=== PATIENT | male | born 1935 | race Caucasian/White ===

== ENCOUNTER 2017-03-29 16:56 | Inpatient (IN) | payer MEDICARE, MEDICAID ==
[~2017-03-29] VITALS: Ht 180.3 cm; Wt 72.0 kg
[~2017-03-29 16:56] MED LIST: AVOD0.5C PO; ROSU5 PO
[2017-03-29 16:57] VITALS: BP 113/59; PULSE 104; RESP 24; TEMP 99.8; O2SAT 99
[2017-03-29] MEDS ORDERED: ROSU5 PO (17:20)
--- NOTE | 2017-03-29 17:36 | PD ---
HPI Chief Complaint: Altered mental status Time Seen by Provider: 17:10 Travel History International Travel<30 days: No Contact w/Intl Traveler<30days: No Traveled to known affect area: No History of Present Illness HPI 82yo M with PMH of HLD presents to the ED with multiple complaints. Pt's 1 week ago and pt has not been acting like himself. As per daughter, pt has shuffling gait, not eating much or getting out of bed. Pt is AAOx3 but has decreased strength in left leg on exam. Pt states for the last 2 days, he has been urinating on himself. Denies any fall, back pain or focal numbness. Had fever of 101F 2 days ago. Pt with intermittent lower abdominal pain for a few days. Denies any chest pain, sob, n/v. PFSH Past Medical History High Cholesterol: Yes Reproductive: Yes (ENLARGED PROSTATE) Tetanus Vaccination: Unknown Past Surgical History Appendectomy: Yes Social History Alcohol Use: No Tobacco Use: No Substance Use: No Allergies-Medications (Allergen,Severity, Reaction): Coded Allergies: No Known Allergies (Verified , 03/29/17) Reported Meds & Prescriptions Reported Meds & Active Scripts Active Reported Crestor (Rosuvastatin Calcium) 5 Mg Tab 5 Mg PO DAILY Avodart (Dutasteride) 0.5 Mg Cap 0.5 Mg PO DAILY Crestor (Rosuvastatin Calcium) 5 Mg Tab 5 Mg PO DAILY Review of Systems Except as stated in HPI: all other systems reviewed are Neg Physical Exam Narrative GENERAL: 82yo M tearful. SKIN: Focused skin assessment warm/dry. HEAD: Atraumatic. Normocephalic. EYES: Pupils equal and round. No scleral icterus. No injection or drainage. ENT: No nasal bleeding or discharge. Mucous membranes pink and moist. NECK: Trachea midline. No JVD. CARDIOVASCULAR: Regular rate and rhythm. No murmur appreciated. RESPIRATORY: No accessory muscle use. Clear to auscultation. Breath sounds equal bilaterally. GASTROINTESTINAL: Abdomen soft, +TTP suprapubic region. MUSCULOSKELETAL: No obvious deformities. No clubbing. No cyanosis. No edema. NEUROLOGICAL: AAOx3. CNII-XII grossly intact. LLE muscle strength 3/5. Sensation intact. PSYCHIATRIC: Tearful. Data Data Last Documented VS Vital Signs Date Time Temp Pulse Resp B/P (MAP) Pulse Ox O2 Delivery O2 Flow Rate FiO2 03/29/17 16:57 99.8 104 24 113/59 (77) 99 Room Air Orders Orders Ct Brain W/O Iv Contrast(Rout) (03/29/17 ) Urinalysis - C+S If Indicated (03/29/17 17:28) Complete Blood Count With Diff (03/29/17 17:28) Basic Metabolic Panel (Bmp) (03/29/17 17:28) Chest, Single Ap (03/29/17 ) Prothrombin Time / Inr (Pt) (03/29/17 17:28) Act Partial Throm Time (Ptt) (03/29/17 17:28) Ct Abd/Pel W Iv Contrast(Rout) (03/29/17 ) Labs Laboratory Tests Test 03/29/17 17:30 White Blood Count 6.3 TH/MM3 Red Blood Count 4.47 MIL/MM3 Hemoglobin 12.4 GM/DL Hematocrit 37.6 % Mean Corpuscular Volume 84.1 FL Mean Corpuscular Hemoglobin 27.8 PG Mean Corpuscular Hemoglobin Concent 33.1 % Red Cell Distribution Width 15.3 % Platelet Count 131 TH/MM3 Mean Platelet Volume 9.7 FL Neutrophils (%) (Auto) 77.2 % Lymphocytes (%) (Auto) 9.6 % Monocytes (%) (Auto) 8.9 % Eosinophils (%) (Auto) 3.6 % Basophils (%) (Auto) 0.7 % Neutrophils # (Auto) 4.9 TH/MM3 Lymphocytes # (Auto) 0.6 TH/MM3 Monocytes # (Auto) 0.6 TH/MM3 Eosinophils # (Auto) 0.2 TH/MM3 Basophils # (Auto) 0.0 TH/MM3 CBC Comment DIFF FINAL Differential Comment Prothrombin Time 13.9 SEC Prothromb Time International Ratio 1.2 RATIO Activated Partial Thromboplast Time 34.3 SEC Blood Urea Nitrogen 18 MG/DL Creatinine 0.97 MG/DL Random Glucose 103 MG/DL Calcium Level 7.6 MG/DL Sodium Level 138 MEQ/L Potassium Level 3.7 MEQ/L Chloride Level 104 MEQ/L Carbon Dioxide Level 25.4 MEQ/L Anion Gap 9 MEQ/L Estimat Glomerular Filtration Rate 74 ML/MIN MDM Medical Decision Making Medical Screen Exam Complete: Yes Emergency Medical Condition: Yes Interpretation(s) EKG: Differential Diagnosis CVA vs. UTI vs. colitis vs. grieve vs. Pneumonia Narrative Course 82yo M with multiple complaints. Pt's daughter is mainly concern about the change in gait and pt also has left lower extremity weakness on exam. Pt denies any fall, no back pain, no saddle paresthesia. Pt does have urinary incontinence and suprapubic abdominal pain. Impression is more cystitis but needs to rule out CVA as well. Labs reviewed, no leukocytosis. BMP unremarkable. CXR negative. Pt pending UA and CT brain, CT a/p. Sign out to next team to follow up and reevaluate. Nori Leblanc DO Mar 29, 2017 17:36
[2017-03-29 18:07] LABS: APTT (PATIENT) 34.3 SEC (24.3-30.1); INTERNATIONAL NORMALIZED RATIO 1.2 RATIO; PROTHROMBIN TIME - PATIENT 13.9 SEC (9.8-11.6)
[2017-03-29 18:09] LABS: AUTOMATED NEUTROPHIL # 4.9 TH/MM3 (1.8-7.7); BASOPHIL % 0.7 % (0.0-2.0); EOSINOPHIL # 0.2 TH/MM3 (0-0.4); EOSINOPHIL % 3.6 % (0.0-4.0); HEMATOCRIT 37.6 % (39.0-51.0); HEMO FLAGS DIFF FINAL; LYMPH % 9.6 % (9.0-44.0); LYMPHOCYTE # 0.6 TH/MM3 (1.0-4.8); MEAN CELL VOLUME 84.1 FL (80.0-100.0); MEAN CORPUSCULAR HEMOGLOBIN 27.8 PG (27.0-34.0); MEAN CORPUSCULAR HGB CONC 33.1 % (32.0-36.0); MONO % 8.9 % (0.0-8.0); NEUT % 77.2 % (16.0-70.0); PLATELET COUNT 131 TH/MM3 (150-450); RED BLOOD COUNT 4.47 MIL/MM3 (4.50-5.90); RED CELL DISTRIBUTION WIDTH 15.3 % (11.6-17.2); WHITE BLOOD COUNT 6.3 TH/MM3 (4.0-11.0)
--- NOTE | 2017-03-29 18:13 | RADRPT ---
EXAM DATE/TIME: 03/29/2017 17:51 [facility] COMPARISON: No previous studies available for comparison. INDICATIONS : Cough. MEDICAL HISTORY : None. SURGICAL HISTORY : None. ENCOUNTER: Initial ACUITY: 1 day PAIN SCORE: 0/10 LOCATION: Bilateral chest FINDINGS: A single view of the chest demonstrates the lungs to be symmetrically aerated without evidence of mas s, infiltrate or effusion. The cardiomediastinal contours are unremarkable. Osseous structures are intact. CONCLUSION: The lungs are clear. Kenroy Harmon MD on March 29, 2017 at 18:11 Board Certified Radiologist. This report was verified electronically.
[2017-03-29 18:26] LABS: BICARBONATE 25.4 MEQ/L (21.0-32.0); POTASSIUM 3.7 MEQ/L (3.5-5.1)
[2017-03-29] MEDS ORDERED: IOHEXOL 350 MG/ML 10 ML VIAL (for RAD DIAG) IVCONTRAST ONE (20:10)
--- NOTE | 2017-03-29 20:30 | RADRPT ---
EXAM DATE/TIME: 03/29/2017 19:58 [facility] COMPARISON: No previous studies available for comparison. INDICATIONS : Altered mental status. RADIATION DOSE: 49.37 CTDIvol (mGy) MEDICAL HISTORY : None SURGICAL HISTORY : None. ENCOUNTER: Initial ACUITY: 1 day PAIN SCALE: 0/10 LOCATION: cranial TECHNIQUE: Multiple contiguous axial images were obtained of the head. Using automated exposure control and adj ustment of the mA and/or kV according to patient size, radiation dose was kept as low as reasonably a chievable to obtain optimal diagnostic quality images. DICOM format image data is available electro nically for review and comparison. FINDINGS: CEREBRUM: The ventricles are normal for age. No evidence of midline shift, mass lesion, hemorrhage or acute in farction. No extra-axial fluid collections are seen. POSTERIOR FOSSA: The cerebellum and brainstem are intact. The 4th ventricle is midline. The cerebellopontine angle i s unremarkable. EXTRACRANIAL: The visualized portion of the orbits is intact. SKULL: The calvaria is intact. No evidence of skull fracture. CONCLUSION: 1. No acute findings. Chronic white matter ischemic changes. Wilber Riley MD on March 29, 2017 at 20:28 Board Certified Radiologist. This report was verified electronically.
--- NOTE | 2017-03-29 20:35 | RADRPT ---
EXAM DATE/TIME: 03/29/2017 20:03 [facility] COMPARISON: No previous studies available for comparison. INDICATIONS : Lower abdominal pain with diarrhea and dysuria. IV CONTRAST: 100 cc Omnipaque 350 (iohexol) IV ORAL CONTRAST: No oral contrast ingested. RADIATION DOSE: 5.93 CTDIvol (mGy) MEDICAL HISTORY : None SURGICAL HISTORY : Appendectomy. ENCOUNTER: Initial ACUITY: 3 days PAIN SCALE: 5/10 LOCATION: Bilateral lower quadrant TECHNIQUE: Volumetric scanning of the abdomen and pelvis was performed. Using automated exposure control and ad justment of the mA and/or kV according to patient size, radiation dose was kept as low as reasonably achievable to obtain optimal diagnostic quality images. DICOM format image data is available electro nically for review and comparison. FINDINGS: Atelectasis noted in the lungs at the bases. Mild fatty liver. Spleen enlarged at 16.7 cm. Calcified gallstones in the gallbladder without ductal dilatation. Adrenals, left kidney and pancreas unremarkable. Lower pole left renal cyst measuring 4.9 cm of the l ower pole. No pelvic masses or free fluid. No acute bony abnormalities. CONCLUSION: 1. No acute findings within the abdomen and pelvis. Specifically no obstructive uropathy or bowel obs truction. 2. Multiple calcified gallstones. 3. Splenomegaly. Wilber Riley MD on March 29, 2017 at 20:31 Board Certified Radiologist. This report was verified electronically.
[2017-03-29 20:50] VITALS: BP 121/58; PULSE 108; RESP 16; O2SAT 94
[2017-03-29 20:54] LABS: BLOOD, URINE NEG (NEG); COMMENT (UR) CULT NOT INDICATED; CULTURE IF INDICATED CULT NOT INDICATED; GLUCOSE,URINE NEG (NEG); KETONE, URINE NEG (NEG); MUCUS URINE FEW /lpf (OCC); NITRITE,URINE NEG (NEG); SQUAMOUS EPITHELIAL CELL URINE 1 /hpf (0-5); URINE COLOR YELLOW (YELLW/STRAW)
[2017-03-29 21:02] LABS: INDIRECT BILIRUBIN 0.6 MG/DL (0.0-0.8); TOTAL BILIRUBIN ADULT 0.9 MG/DL (0.2-1.0)
[2017-03-29] MEDS ORDERED: SODIUM CHLOR 0.9% 1000 ML INJ 1,000 ML IV ONE (21:15)
--- NOTE | 2017-03-29 21:26 | PD ---
Data Data Last Documented VS Vital Signs Date Time Temp Pulse Resp B/P (MAP) Pulse Ox O2 Delivery O2 Flow Rate FiO2 03/29/17 20:50 108 16 121/58 (79) 94 Room Air 03/29/17 16:[address] Brain W/O Iv Contrast(Rout) (03/29/17 ) Urinalysis - C+S If Indicated (03/29/17 17:28) Complete Blood Count With Diff (03/29/17 17:28) Basic Metabolic Panel (Bmp) (03/29/17 17:28) Chest, Single Ap (03/29/17 ) Prothrombin Time / Inr (Pt) (03/29/17 17:28) Act Partial Throm Time (Ptt) (03/29/17 17:28) Ct Abd/Pel W Iv Contrast(Rout) (03/29/17 ) Iohexol 350 Inj (Omnipaque 350 Inj) (03/29/17 20:10) Hepatic Functional Panel (03/29/17 20:44) Creatine Kinase (Cpk) (03/29/17 17:30) Sodium Chlor 0.9% 1000 Ml Inj (Ns 1000 M (03/29/17 21:15) Blood Culture (03/29/17 21:15) Stool Ova And Parasite Screen (03/29/17 21:18) C Diff Toxin Pcr (03/29/17 21:18) Mri Brain W&W/O Contrast (03/29/17 ) Mra Brain W/O Contrast (Cow) (03/29/17 ) Mri L Spine W&W/O Contrast (03/29/17 ) Acetaminophen (Tylenol) (03/29/17 21:30) Monoscreen (03/29/17 21:24) Influenzae A/B Antigen (03/29/17 21:33) Admit Order (Ed Use Only) (03/29/17 21:34) Labs Laboratory Tests Test 03/29/17 17:30 03/29/17 20:44 White Blood Count 6.3 TH/MM3 Red Blood Count 4.47 MIL/MM3 Hemoglobin 12.4 GM/DL Hematocrit 37.6 % Mean Corpuscular Volume 84.1 FL Mean Corpuscular Hemoglobin 27.8 PG Mean Corpuscular Hemoglobin Concent 33.1 % Red Cell Distribution Width 15.3 % Platelet Count 131 TH/MM3 Mean Platelet Volume 9.7 FL Neutrophils (%) (Auto) 77.2 % Lymphocytes (%) (Auto) 9.6 % Monocytes (%) (Auto) 8.9 % Eosinophils (%) (Auto) 3.6 % Basophils (%) (Auto) 0.7 % Neutrophils # (Auto) 4.9 TH/MM3 Lymphocytes # (Auto) 0.6 TH/MM3 Monocytes # (Auto) 0.6 TH/MM3 Eosinophils # (Auto) 0.2 TH/MM3 Basophils # (Auto) 0.0 TH/MM3 CBC Comment DIFF FINAL Differential Comment Prothrombin Time 13.9 SEC Prothromb Time International Ratio 1.2 RATIO Activated Partial Thromboplast Time 34.3 SEC Blood Urea Nitrogen 18 MG/DL Creatinine 0.97 MG/DL Random Glucose 103 MG/DL Calcium Level 7.6 MG/DL Sodium Level 138 MEQ/L Potassium Level 3.7 MEQ/L Chloride Level 104 MEQ/L Carbon Dioxide Level 25.4 MEQ/L Anion Gap 9 MEQ/L Estimat Glomerular Filtration Rate 74 ML/MIN Total Bilirubin 0.9 MG/DL Direct Bilirubin 0.3 MG/DL Indirect Bilirubin 0.6 MG/DL Aspartate Amino Transf (AST/SGOT) 18 U/L Alanine Aminotransferase (ALT/SGPT) 32 U/L Alkaline Phosphatase 87 U/L Total Creatine Kinase 20 U/L Total Protein 6.1 GM/DL Albumin 2.7 GM/DL Urine Color YELLOW Urine Turbidity HAZY Urine pH 6.0 Urine Specific [place] GREATER THAN 1.050 Urine Protein 30 mg/dL Urine Glucose (UA) NEG mg/dL Urine Ketones NEG mg/dL Urine Occult Blood NEG Urine Nitrite NEG Urine Bilirubin NEG Urine Urobilinogen 2.0 MG/DL Urine Leukocyte Esterase NEG Urine RBC 2 /hpf Urine WBC 4 /hpf Urine Squamous Epithelial Cells 1 /hpf Urine Mucus FEW /lpf Microscopic Urinalysis Comment CULT NOT INDICATED MDM Supervised Visit with CHETAN: No Narrative Course The patient was initially evaluated by the previous provider and sent out to me at the beginning of my shift pending labs, CT head, CT abdomen pelvis, UA, and disposition. See her note for further details. Briefly this is an 82-year-old male who is here with his daughter and granddaughter for evaluation of fever, generalized malaise, decreased energy, shuffling gait, and left lower extremity weakness. The patient's a couple of weeks ago, and the patient has had these symptoms that have been progressively worsening over the last week. According to the patient's daughter , the patient was mowing his own monitor until 2 weeks ago and was very independent. He has become more dependent on his family members because he feels too weak to get up. The patient also does not feel like getting out of bed. He has had 2 episodes of urinary incontinence. He was complaining of some abdominal discomfort. On exam the patient is awake and alert, GCS 15, no apparent distress. No nuchal rigidity. No abdominal tenderness. He does have slight left leg weakness when compared to the right. He is complaining of some lower back pain, however states it has been chronic. He has also been having loose bowel movements. Vital signs show heart rate 104, blood pressure 113/59, pulse ox 99% on room air , oral temp of 99.8F. CBC shows WBC 6.3, hemoglobin 12.4, hematocrit 37.6, platelets 131, neutrophils 77%. CMP is unremarkable. CK is 20. UA is not suggestive of UTI. Chest x-ray: The lungs are clear. CT head: No acute findings. Chronic white matter ischemic changes. CT abdomen pelvis: No acute findings. Multiple calcified gallstones. Splenomegaly The patient and the patient's family were made aware of all findings. He has an unsteady gait which is unusual for him complaining of weakness in his left leg. He does have some mild midline lumbar spine tenderness. MRI brain was ordered to rule out CVA. MRI of the lumbar spine was also ordered to look for possible discitis/epidural abscess that could be the culprit for his lower back pain, left leg weakness, urinary incontinence, and fever. Patient has splenomegaly on CT scan, so [facility] screen and influenza were ordered given his fever. The patient will be admitted for further treatment and evaluation of unsteady gait, febrile illness. Case discussed with [facility] hospitalist LAURA Hager. The patient will be admitted to their service under Dr. Vyas. They will follow-up with MRI imaging and all added labs. Diagnosis Primary Impression: Unsteady gait Additional Impression: Fever of unknown origin Admitting Information Admitting Physician Requests: Sang Parada MD Mar 29, 2017 21:26
[2017-03-29] MEDS ORDERED: ACETAMINOPHEN 325 MG TAB PO ONE (21:30)
[2017-03-29] MEDS ORDERED: GADODIAMIDE PF 287 MG/ML 5 ML VIAL (for RAD MRI) IV PUSH ONE (21:36)
[2017-03-29] MEDS ORDERED: SODIUM CHLORIDE 0.9% FLUSH 10 ML FLUSH IV FLUSH PRN (22:45)
[2017-03-29] MEDS ORDERED: BISACODYL 10 MG SUPP RECTAL PRN (22:45)
[2017-03-29] MEDS ORDERED: ACETAMINOPHEN 325 MG TAB PO PRN (22:45)
[2017-03-29] MEDS ORDERED: SENNOSIDES 8.6 MG TAB PO PRN (22:45)
[2017-03-29] MEDS ORDERED: NALOXONE HCL 0.4 MG/ML AMP IV PRN (22:45)
[2017-03-29] MEDS ORDERED: LACTULOSE SYRUP 20 GM/30 ML CUP PO PRN (22:45)
[2017-03-29] MEDS ORDERED: MAGNESIUM HYDROXIDE SUSP 30 ML CUP PO PRN (22:45)
[2017-03-29] MEDS ORDERED: ONDANSETRON HCL 4 MG/2 ML VIAL IVP PRN (22:45)
[2017-03-29] MEDS ORDERED: LORazepam 2 MG/ML VIAL ONE (23:11)
[2017-03-29] MEDS ORDERED: LORazepam 2 MG/ML VIAL IV PUSH ONE (23:15)
[2017-03-30] VITALS (14 sets, daily range): BP systolic 92–145; BP diastolic 51–67; PULSE 92–123; RESP 17–22; TEMP 97.8–102.1; O2SAT 93–97
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
[2017-03-30] MEDS: ASPIRIN EC 81 MG TABEC PO SCH ×2 (01:06→08:54)
[2017-03-30] MEDS: HEPARIN SODIUM - SQ 10,000 UNITS/ML VIAL SQ SCH ×3 (01:06→23:39)
[2017-03-30] MEDS: SODIUM CHLOR 0.9% 1000 ML INJ 1,000 ML IV SCH ×3 (01:07→20:53)
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
--- NOTE | 2017-03-30 07:43 | MH ---
cc: MADAN VYAS DATE OF ADMISSION: 03/29/2017 @ 22:30 PRIMARY CARE PHYSICIAN Bishop Carr MD CHIEF COMPLAINT Weakness, low-grade fever. HISTORY OF PRESENT ILLNESS This is a pleasant 82-year-old male whose a month ago. His appetite has been poor. Over the past week, though, he has really just lost all of his energy. He is staying with his daughter who has developed an upper respiratory infection. He may have developed a little bit of an upper respiratory infection as well. He has had some fever, chills. He has become shaky. He has had some decreased urine control at night. He has also had some yellowish small stools for awhile. His low back is hurting but this is not a new problem; it has been intermittent. His legs feel weak and occasionally painful, the left being weaker than the right. Over the last two days, he has also had some urinary accidents as well. His temperature has been up to 101. He went to see his family doctor today and was sent to the emergency room. He has had some lower abdominal pain as well for a few days. He has not had any chest pain, shortness of breath, nausea, vomiting. No blood in the stool. He has had no trauma to the back, no falls and no change in medication recently. MEDICATIONS ON ADMISSION Please see the chart. ALLERGIES None. PAST MEDICAL HISTORY 1. BPH. 2. Hyperlipidemia. 3. Hypertension. 4. Low B-12. PAST SURGICAL HISTORY Appendectomy. SOCIAL HISTORY He has been a for about a month. Never smoked or drank. FAMILY HISTORY Non-contributory. REVIEW OF SYSTEMS The patient has lost roughly 20 pounds over the past month since his has . He has had long-time shuffling of his gait where he seems to drag his left foot. He states that he may have hurt his back from lifting long in the past but he was able to stay active with cutting grass and doing basic things around the house until recently with his dying. His sleep has also not been the same since his has , is more broken than it had been. He feels that he may be depressed. PHYSICAL EXAMINATION VITAL SIGNS: T-max here has been 99.8, pulse is 108, respirations 16, blood pressure 120/58. O2 sat is 94% on room air. GENERAL: This is an 82-year-old male resting comfortably in bed. He does appear to be uncomfortable when he tries to move. His daughter is at the bedside. He is in no respiratory distress. HEENT: Mucous membranes are moist. There is no jaundice. NECK: Supple. CARDIOVASCULAR SYSTEM: Tachycardic. RESPIRATORY SYSTEM: Lungs are clear. GASTROINTESTINAL SYSTEM: Bowel sounds are present. Mild discomfort with palpation over the lower abdomen. SYSTEM: No CVA tenderness. MUSCULOSKELETAL SYSTEM: No edema. Trudy's is negative. Distal pulses are palpable. NEUROLOGICAL EXAMINATION: The patient is awake, alert, oriented x 3. His speech is clear and fluent. There is no obvious facial asymmetry. EOMs are intact. There is a very mild tremor in both his upper extremities. Lower extremity straight leg raising is normal on the right, on the left is 3/5. Dorsi and plantar flexion is 5/5 on the right, 4/5 on the left. Gait and station is not tested. INVESTIGATIONS White count 6.3, hemoglobin 12.4, platelets are 131. INR is 1.2. PT is 13.9. PTT is 34.3. Sodium 138, potassium 3.7, BUN 18, creatinine 0.97, glucose 103, calcium 7.6. Direct bilirubin is 0.3, total is 0.9. LFTs otherwise normal. CPK is 10, total protein is 6.1, albumin is 2.7. IMAGING STUDIES CT of the abdomen and pelvis - no acute findings. No obstructive uropathy or bowel obstruction. Multiple calcified gallstones, splenomegaly. Chest x-ray - Lungs are clear. Head CT - No acute findings. Chronic white matter changes. IMPRESSION 1. Unsteady gait. 2. Fevers. 3. Thrombocytopenia. 4. Protein calorie malnutrition. 5. Mild anemia. 6. Hypertension. 7. Hyperlipidemia. 8. Splenomegaly. 9. Gallstones. DISCUSSION The patient is placed on observation status to Dr. Vyas's service. PLAN 1. The plan will be to run an MRI/MRA of the head which has been ordered through the emergency room as well as an MRI of the lumbar spine because of the lower extremity weakness. 2. We will start the patient on baby aspirin as well as DVT prophylaxis. 3. Further labs including blood cultures have been ordered, C-diff and flu are ordered. We will add a procalcitonin, inflammatory markers. 4. He will be placed on fluids. 5. We will monitor him on telemetry because of the tachycardia. 6. We will monitor his labs and we will make further recommendations based on the above findings. 7. DVT prophylaxis and GI prophylaxis will be given. ANTICIPATED LENGTH OF STAY Two days. ANTICIPATED DISCHARGE Home. Dictated by: Milton Hager PA-C Madan Vyas MD JP/SSB /10:59 PM /7:05 AM pt evaluation done chart reviewed agree with above plan of care MTDD
[2017-03-30] MEDS: FAMOTIDINE 20 MG TAB PO SCH ×2 (08:54→20:59)
[2017-03-30] MEDS: SODIUM CHLORIDE 0.9% FLUSH 10 ML FLUSH IV FLUSH SCH ×2 (08:54→21:00)
--- NOTE | 2017-03-30 08:56 | HHI.PR ---
Subjective Subjective Remarks awake, oriented x 3 wants to eat states he has not been as hungry dry cough, no sputum no cp no sob slept okay Review of Systems Constitutional Constitutional Remarks 12 point review of systems completed, negative except as noted above Vitals/Results Vital Signs Vital Signs Date Time Temp Pulse Resp B/P (MAP) Pulse Ox O2 Delivery O2 Flow Rate FiO2 03/30/17 08:27 97.8 98 18 94/51 (65) 96 03/30/17 04:17 98.7 123 19 112/54 (73) 96 03/30/17 02:13 93 03/30/17 01:01 98.5 92 17 92/55 (67) 95 03/29/17 23:35 03/29/17 20:50 108 16 121/58 (79) 94 Room Air 03/29/17 16:57 99.8 104 24 113/59 (77) 99 Room Air CBC/BMP: 03/29/17 1730 03/29/17 1730 Lab Results Laboratory Tests Test 03/29/17 17:30 03/29/17 20:44 03/30/17 01:00 03/30/17 07:35 White Blood Count 6.3 TH/MM3 Red Blood Count 4.47 MIL/MM3 Hemoglobin 12.4 GM/DL Hematocrit 37.6 % Mean Corpuscular Volume 84.1 FL Mean Corpuscular Hemoglobin 27.8 PG Mean Corpuscular Hemoglobin Concent 33.1 % Red Cell Distribution Width 15.3 % Platelet Count 131 TH/MM3 Mean Platelet Volume 9.7 FL Neutrophils (%) (Auto) 77.2 % Lymphocytes (%) (Auto) 9.6 % Monocytes (%) (Auto) 8.9 % Eosinophils (%) (Auto) 3.6 % Basophils (%) (Auto) 0.7 % Neutrophils # (Auto) 4.9 TH/MM3 Lymphocytes # (Auto) 0.6 TH/MM3 Monocytes # (Auto) 0.6 TH/MM3 Eosinophils # (Auto) 0.2 TH/MM3 Basophils # (Auto) 0.0 TH/MM3 CBC Comment DIFF FINAL Differential Comment Erythrocyte Sedimentation Rate 11 mm/hr Prothrombin Time 13.9 SEC Prothromb Time International Ratio 1.2 RATIO Activated Partial Thromboplast Time 34.3 SEC Blood Urea Nitrogen 18 MG/DL Creatinine 0.97 MG/DL Random Glucose 103 MG/DL Calcium Level 7.6 MG/DL Sodium Level 138 MEQ/L Potassium Level 3.7 MEQ/L Chloride Level 104 MEQ/L Carbon Dioxide Level 25.4 MEQ/L Anion Gap 9 MEQ/L Estimat Glomerular Filtration Rate 74 ML/MIN Total Bilirubin 0.9 MG/DL Direct Bilirubin 0.3 MG/DL Indirect Bilirubin 0.6 MG/DL Aspartate Amino Transf (AST/SGOT) 18 U/L Alanine Aminotransferase (ALT/SGPT) 32 U/L Alkaline Phosphatase 87 U/L Total Creatine Kinase 20 U/L C-Reactive Protein 4.86 MG/DL Total Protein 6.1 GM/DL Albumin 2.7 GM/DL Urine Color YELLOW Urine Turbidity HAZY Urine pH 6.0 Urine Specific [place] GREATER THAN 1.050 Urine Protein 30 mg/dL Urine Glucose (UA) NEG mg/dL Urine Ketones NEG mg/dL Urine Occult Blood NEG Urine Nitrite NEG Urine Bilirubin NEG Urine Urobilinogen 2.0 MG/DL Urine Leukocyte Esterase NEG Urine RBC 2 /hpf Urine WBC 4 /hpf Urine Squamous Epithelial Cells 1 /hpf Urine Mucus FEW /lpf Microscopic Urinalysis Comment CULT NOT INDICATED Procalcitonin 0.35 ng/mL Microbiology Microbiology 03/29/17 Aerobic Blood Culture, Received Pending 03/29/17 Anaerobic Blood Culture, Received Pending 03/29/17 Aerobic Blood Culture, Received Pending 03/29/17 Anaerobic Blood Culture, Received Pending Physical Exam General General Appearance: Well Developed, Well Nourished, No Acute Distress, Comfortable Eyes Eye Exam: Pupils Equal, Pupils Reactive Ears & Nose Ears & Nose Exam: Nasal Mucosa [place] Throat Throat Exam: Oral Mucosa [place] & Moist Neck Neck Exam: Neck Supple, Trachea Midline Pulmonary Resp Exam: Clear Bilaterally, No Distress Cardiology CV Exam: Regular, Good Perfusion Gastrointestinal/Abdomen GI Exam: Soft, Non-Tender, Bowel Sounds Present, Non-Distended Musculoskeletal MS Exam: Joints Intact Integumentary Skin Exam: Warm, Dry Extremeties Extremities Exam: No Edema, Pedal Pulses Palpable Neurologic Neuro Exam: Alert, Awake, Oriented, Speech Clear, Moving All Extremities, No Focal Deficits Psychiatric Psych Exam: Appropriate Responses VTE Prophylaxis VTE Prophylaxis Meds: Heparin PUD Prophylasis PUD Remarks PEPCID Assessment/Plan Problem List: (1) Fever of unknown origin ICD Codes: R50.9 - Fever, unspecified Status: Acute (2) Unsteady gait ICD Codes: R26.81 - Unsteadiness on feet Status: Acute (3) Thrombocytopenia ICD Codes: D69.6 - Thrombocytopenia, unspecified Status: Acute (4) Protein calorie malnutrition ICD Codes: E46 - Unspecified protein-calorie malnutrition Status: Acute (5) Anemia ICD Codes: D64.9 - Anemia, unspecified Status: Chronic (6) HTN (hypertension) ICD Codes: I10 - Essential (primary) hypertension Status: Chronic (7) Splenomegaly ICD Codes: R16.1 - Splenomegaly, not elsewhere classified Status: Acute (8) Elevated C-reactive protein ICD Codes: R79.82 - Elevated C-reactive protein (CRP) Status: Acute Assessment/Plan 81-year-old elderly male admitted with weakness, not eating, left lower extremity weakness, fever at home. Left lower extremity weakness, fever, elevated CRP. No source of infection noted. Possibly viral -Imaging studies reviewed, no acute findings noted. -We'll not start antibiotics at this time, monitor WBC, monitor for fever. -Reported diarrhea, stool for C. difficile pending Weakness -Physical therapy for evaluation and treatment -No acute findings to spine MRI. Tachycardia, possibly secondary to dehydration -Continue with IV fluid History hypertension, blood pressure actually trending low -Continue with IV fluid Splenomegaly Thrombocytopenia -Monitor CBC Heparin for DVT prophylaxis Pepcid for GI prophylaxis Consult physical therapy for evaluation Continue with above treatment, we'll continue to monitor her closely Plan to discharge tomorrow if stable Discussed with RN Discussed with Dr. Vyas Discussed with patient This patient was seen by myself and Dr. Vyas, this note is written on his behalf Problem Qualifiers (1) Protein calorie malnutrition: Qualified Codes: E44.0 - Moderate protein-calorie malnutrition (2) Anemia: Qualified Codes: D64.9 - Anemia, unspecified (3) HTN (hypertension): Qualified Codes: I10 - Essential (primary) hypertension Nataly Andrew Mar 30, 2017 08:55
[2017-03-30] MEDS: ACETAMINOPHEN 325 MG TAB PO PRN (21:00)
[2017-03-31] VITALS (12 sets, daily range): BP systolic 95–119; BP diastolic 53–60; PULSE 92–109; RESP 16–18; TEMP 99.1–102.1; O2SAT 93–97
[2017-03-31 00:09] LABS: BACTERIA, URINE RARE /hpf; BLOOD, URINE NEG (NEG); GLUCOSE,URINE NEG (NEG); GRANULAR CAST, URINE 3 /lpf; HYALINE CAST, URINE 1 /lpf (RARE); KETONE, URINE NEG (NEG); MUCUS URINE FEW /lpf (OCC); NITRITE,URINE NEG (NEG); PH, URINE 5.5 (5.0-8.5); SQUAMOUS EPITHELIAL CELL URINE 1 /hpf (0-5); URINE COLOR YELLOW (YELLW/STRAW)
[2017-03-31 00:10] LABS: COMMENT (UR) CATH-CULTURE IND; CULTURE IF INDICATED CATH CULTURE IND
[2017-03-31] MEDS: ACETAMINOPHEN 325 MG TAB PO PRN ×3 (01:14→18:22)
[2017-03-31] MEDS: SODIUM CHLOR 0.9% 1000 ML INJ 1,000 ML IV SCH (06:33)
--- NOTE | 2017-03-31 07:53 | HHI.FF ---
Face to Face Verification Diagnosis: (1) Fever of unknown origin (2) Unsteady gait (3) Anemia (4) Splenomegaly (5) Thrombocytopenia (6) Protein calorie malnutrition (7) HTN (hypertension) (8) Elevated C-reactive protein Physical Therapy Order: Evaluate and Treat Home Health Nursing Order: Medical education Nursing assessment with vital signs B[facility] Header Order: To Evaluate: Support services I have seen patient Tremaine Garcia on 03/31/17. My clinical findings support the need for the requested home health care services because: Deconditioned w/ increased weakness Need for psychosocial assistance Impaired cognition/judgement I certify that my clinical findings support that this patient is homebound because: Impaired cognitive ability/safety Unsafe to leave home unassisted Need for psychosocial assistance Nataly Andrew [facility] Mar 31, 2017 07:53
--- NOTE | 2017-03-31 08:52 | HHI.PR ---
Subjective Subjective Remarks awake, oriented x 3 Complaining of chills Febrile last night, max 102.1 No cough, no sputum No urinary symptoms Noted with murmur, indicates that he has never seen a radiology transcriptionist Not sure when the last echocardiogram was done Denies any chest pain, no shortness of breath Indicates he has been drinking more water and appetite is improving Review of Systems Constitutional Constitutional Remarks 12 point review of systems completed, negative except as noted above Vitals/Results Vital Signs Vital Signs Date Time Temp Pulse Resp B/P (MAP) Pulse Ox O2 Delivery O2 Flow Rate FiO2 03/31/17 04:15 99.4 103 18 99/58 (72) 93 03/31/17 03:56 105 03/31/17 03:20 102.1 03/31/17 01:15 100.0 03/30/17 23:55 99 03/30/17 23:51 99.0 100 18 99/56 (70) 96 03/30/17 22:51 105 03/30/17 21:33 99.0 118 18 112/55 (74) 94 03/30/17 19:35 102.1 110 18 115/58 (77) 96 03/30/17 17:17 98.1 111 22 112/62 (79) 93 03/30/17 16:05 116 03/30/17 12:25 102 03/30/17 11:16 99.2 97 18 99/54 (69) 97 CBC/BMP: 03/29/17 1730 03/29/17 1730 Lab Results Laboratory Tests Test 03/30/17 23:54 Urine Color YELLOW Urine Turbidity HAZY Urine pH 5.5 Urine Specific [place] 1.028 Urine Protein 30 mg/dL Urine Glucose (UA) NEG mg/dL Urine Ketones NEG mg/dL Urine Occult Blood NEG Urine Nitrite NEG Urine Bilirubin NEG Urine Urobilinogen 4.0 MG/DL Urine Leukocyte Esterase TRACE Urine RBC 2 /hpf Urine WBC 4 /hpf Urine Squamous Epithelial Cells 1 /hpf Urine Amorphous Sediment RARE Urine Bacteria RARE /hpf Urine Hyaline Casts 1 /lpf Urine Granular Casts 3 /lpf Urine Mucus FEW /lpf Microscopic Urinalysis Comment CATH-CULTURE IND Microbiology Microbiology 03/31/17 Aerobic Blood Culture, Received Pending 03/31/17 Anaerobic Blood Culture, Received Pending 03/31/17 Aerobic Blood Culture, Received Pending 03/31/17 Anaerobic Blood Culture, Received Pending 03/31/17 Influenza Types A,B Antigen (PATTI) - Final, Complete NEGATIVE FOR FLU A AND B ANTIGEN.... 03/30/17 Urine Culture, Received Pending Physical Exam General General Appearance: Well Developed, Well Nourished, No Acute Distress, Comfortable Eyes Eye Exam: Pupils Equal, Pupils Reactive Ears & Nose Ears & Nose Exam: Nasal Mucosa [place] Throat Throat Exam: Oral Mucosa [place] & Moist Neck Neck Exam: Neck Supple, Trachea Midline Pulmonary Resp Exam: Clear Bilaterally, No Distress Cardiology CV Exam: Regular, Good Perfusion, Murmur Gastrointestinal/Abdomen GI Exam: Soft, Non-Tender, Bowel Sounds Present, Non-Distended Musculoskeletal MS Exam: Joints Intact Integumentary Skin Exam: Warm, Dry Extremeties Extremities Exam: No Edema, Pedal Pulses Palpable Neurologic Neuro Exam: Alert, Awake, Oriented, Speech Clear, Moving All Extremities, No Focal Deficits Psychiatric Psych Exam: Appropriate Responses VTE Prophylaxis VTE Prophylaxis Meds: Heparin PUD Prophylasis PUD Remarks PEPCID Assessment/Plan Problem List: (1) Fever of unknown origin ICD Codes: R50.9 - Fever, unspecified Status: Acute (2) Unsteady gait ICD Codes: R26.81 - Unsteadiness on feet Status: Acute (3) Thrombocytopenia ICD Codes: D69.6 - Thrombocytopenia, unspecified Status: Acute (4) Protein calorie malnutrition ICD Codes: E46 - Unspecified protein-calorie malnutrition Status: Acute (5) Anemia ICD Codes: D64.9 - Anemia, unspecified Status: Chronic (6) HTN (hypertension) ICD Codes: I10 - Essential (primary) hypertension Status: Chronic (7) Splenomegaly ICD Codes: R16.1 - Splenomegaly, not elsewhere classified Status: Acute (8) Elevated C-reactive protein ICD Codes: R79.82 - Elevated C-reactive protein (CRP) Status: Acute (9) UTI (urinary tract infection) ICD Codes: N39.0 - Urinary tract infection, site not specified Status: Acute (10) Murmur ICD Codes: R01.1 - Cardiac murmur, unspecified Status: Chronic Assessment/Plan 81-year-old elderly male admitted with weakness, not eating, left lower extremity weakness, fever at home. Left lower extremity weakness, fever, elevated CRP. No source of infection noted. Possibly viral -Imaging studies reviewed, no acute findings noted. -Reported diarrhea, stool for C. difficile pending -Febrile last night, complaining of chills. UA completed, probable UTI. -Blood cultures 2 done -Start Rocephin 1 g IV daily, follow cultures Weakness -Physical therapy for evaluation and treatment -No acute findings to spine MRI. Tachycardia, possibly secondary to dehydration -Continue with IV fluid, dec. 50/hr History hypertension, blood pressure actually trending low -Continue with IV fluid Splenomegaly Thrombocytopenia -Monitor CBC Murmur, indicates he has history. Does not recall last echocardiogram. Does not follow-up with a radiology transcriptionist regularly -Obtain 2-D echo -Decrease IV fluids, monitor for symptoms of fluid overload Heparin for DVT prophylaxis Pepcid for GI prophylaxis Consult physical therapy for evaluation Labs pending this morning Will change patient to inpatient status, failed observation status. Remains febrile, cultures have been completed. Requires further investigation into source of infection, continue with IV antibiotics and IV fluids. Patient is at risk for complications that can potentially lead to sepsis, septic shock, possibly . Anticipated discharge back to home with home health care when stable. Discussed with RN Discussed with Dr. Vyas Discussed with patient This patient was seen by myself and Dr. Vyas, this note is written on his behalf Problem Qualifiers (1) Protein calorie malnutrition: Qualified Codes: E44.0 - Moderate protein-calorie malnutrition (2) Anemia: Qualified Codes: D64.9 - Anemia, unspecified (3) HTN (hypertension): Qualified Codes: I10 - Essential (primary) hypertension (4) UTI (urinary tract infection): Qualified Codes: N39.0 - Urinary tract infection, site not specified Nataly Andrew Mar 31, 2017 08:52
[2017-03-31] MEDS ORDERED: cefTRIAXone INJ 1,000 MG in SODIUM CHLORIDE 0.9% INJ 100 ML IV SCH (09:00)
[2017-03-31] MEDS ORDERED: VANCOMYCIN INJ 1,000 MG in SODIUM CHLOR 0.9% 250 ML INJ 250 ML IV SCH (09:15)
[2017-03-31] MEDS: ASPIRIN EC 81 MG TABEC PO SCH (09:46)
[2017-03-31] MEDS: PIPERACIL-TAZO 3.375 GM PREMIX 50 ML IV SCH ×3 (09:46→22:05)
[2017-03-31] MEDS: FAMOTIDINE 20 MG TAB PO SCH ×2 (09:46→22:06)
[2017-03-31] MEDS: SODIUM CHLORIDE 0.9% FLUSH 10 ML FLUSH IV FLUSH SCH ×2 (09:47→21:00)
[2017-03-31] MEDS ORDERED: PNEUMOCOCCAL POLYVALENT INJ 25 MCG/0.5 ML SYR IM ONE (10:00)
[2017-03-31] MEDS ORDERED: INFLUENZA VIRUS VACCINE (QUADRIVALENT) 0.5 ML SYR IM ONE (10:00)
[2017-03-31] MEDS: HEPARIN SODIUM - SQ 10,000 UNITS/ML VIAL SQ SCH ×2 (10:25→22:05)
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
[2017-03-31] MEDS ORDERED: SODIUM CHLOR 0.9% 250 ML INJ 250 ML IV ONE (15:45)
[2017-03-31 18:40] LABS: HEMATOCRIT 33.3 % (39.0-51.0); MEAN CELL VOLUME 82.7 FL (80.0-100.0); MEAN CORPUSCULAR HEMOGLOBIN 28.2 PG (27.0-34.0); MEAN CORPUSCULAR HGB CONC 34.1 % (32.0-36.0); PLATELET COUNT 96 TH/MM3 (150-450); RED BLOOD COUNT 4.03 MIL/MM3 (4.50-5.90); RED CELL DISTRIBUTION WIDTH 15.2 % (11.6-17.2); WHITE BLOOD COUNT 4.2 TH/MM3 (4.0-11.0)
[2017-03-31 18:42] LABS: REVIEW FLAG FINAL
--- NOTE | 2017-03-31 18:49 | RADRPT ---
EXAM DATE/TIME: 03/31/2017 18:12 [facility] COMPARISON: No previous studies available for comparison. INDICATIONS : Pneumonia. MEDICAL HISTORY : None. SURGICAL HISTORY : None. ENCOUNTER: Initial ACUITY: 1 day PAIN SCORE: 2/10 LOCATION: Bilateral chest FINDINGS: Small bilateral pleural effusions present. Minimal subsegmental basilar airspace disease the sac usin g atelectasis. Heart size upper limits normal. No pneumothorax. CONCLUSION: 1. Small bilateral effusions. Minimal subsegmental basilar airspace disease most characteristic of at electasis. Cannot exclude mild bronchopneumonia. Wilber Riley MD on March 31, 2017 at 18:45 Board Certified Radiologist. This report was verified electronically.
[2017-03-31 19:20] LABS: BICARBONATE 23.8 MEQ/L (21.0-32.0); POTASSIUM 3.4 MEQ/L (3.5-5.1)
[2017-03-31 19:32] LABS: CALCIUM-PROTEIN CORRECTED 8.3 MG/DL (8.5-10.1)
--- NOTE | 2017-03-31 19:45 | RADRPT ---
EXAM DATE/TIME: 03/31/2017 18:53 [facility] COMPARISON: No previous studies available for comparison. INDICATIONS : Bilateral leg swelling. MEDICAL HISTORY : Hypercholesterolemia. Hypertension. Enlarged prostate. SURGICAL HISTORY : Appendectomy.Tonsillectomy. Chemotherapy. ENCOUNTER: Initial ACUITY: 1 day PAIN SCORE: 2/10 LOCATION: Bilateral legs. TECHNIQUE: Venous ultrasound of the left and right leg was performed from the inguinal ligament to the proximal calf. Real-time, color Doppler and spectral tracing, compression and augmentation techniques were us ed. FINDINGS: RIGHT LEG: There is normal compressibility of the deep venous system from the inguinal region to the proximal ca lf. No echogenic clot is seen in the lumen of the common femoral, femoral, popliteal, and posterior tibial veins. There is a normal response of the venous system to proximal and distal augmentation an d respiration. LEFT LEG: There is normal compressibility of the deep venous system from the inguinal region to the proximal ca lf. No echogenic clot is seen in the lumen of the common femoral, femoral, popliteal, and posterior tibial veins. There is a normal response of the venous system to proximal and distal augmentation an d respiration. CONCLUSION: Normal examination. Wilber Riley MD on March 31, 2017 at 19:43 Board Certified Radiologist. This report was verified electronically.
[2017-04-01] VITALS (11 sets, daily range): BP systolic 97–118; BP diastolic 52–69; PULSE 102–129; RESP 17–20; TEMP 97.9–100.9; O2SAT 94–98
[2017-04-01] MEDS: PIPERACIL-TAZO 3.375 GM PREMIX 50 ML IV SCH ×2 (03:19→09:05)
[2017-04-01] MEDS ORDERED: ALPRAZolam 0.5 MG TAB PO ONE (05:00)
--- NOTE | 2017-04-01 07:21 | HHI.PR ---
Subjective Subjective Remarks Restless on Generalized malaise and aches Family in room Increased anxiety, Xanax given early this a.m. Cough, nonproductive (Hansa Horner) Review of Systems Constitutional Constitutional: Fatigue, Weakness Constitutional Remarks 10 point ROS done positives noted (Hansa Horner) Pulmonary Respiratory: Coughing (nonproductive), Shortness of Breath (volumes low) (Hansa Horner) Cardiology CV Remarks Tachycardia mild (Hansa Horner) Musculoskeletal MS: Weakness, Stiffness, Swelling (trace lower extremity) (Hansa Horner) Psychiatric Psychiatric: Normal Mood, Anxiety (Hansa Horner) Vitals/Results Vital Signs Vital Signs Date Time Temp Pulse Resp B/P (MAP) Pulse Ox O2 Delivery O2 Flow Rate FiO2 04/01/17 04:15 98.3 104 19 97/58 (71) 96 04/01/17 03:56 102 04/01/17 01:00 111 04/01/17 00:21 99.6 111 20 111/53 (72) 95 03/31/17 23:08 100 03/31/17 19:56 99.9 97 17 103/55 (71) 94 03/31/17 15:35 99.8 101 16 100/60 (73) 96 03/31/17 15:00 92 03/31/17 11:30 99.1 03/31/17 10:19 101.3 03/31/17 08:44 99.1 109 16 119/59 (79) 97 (Hansa Horner) CBC/BMP: 03/31/17 1825 03/31/17 1825 Lab Results Laboratory Tests Test 03/31/17 18:25 White Blood Count 4.2 TH/MM3 Red Blood Count 4.03 MIL/MM3 Hemoglobin 11.4 GM/DL Hematocrit 33.3 % Mean Corpuscular Volume 82.7 FL Mean Corpuscular Hemoglobin 28.2 PG Mean Corpuscular Hemoglobin Concent 34.1 % Red Cell Distribution Width 15.2 % Platelet Count 96 TH/MM3 Mean Platelet Volume 8.8 FL Blood Urea Nitrogen 15 MG/DL Creatinine 0.91 MG/DL Random Glucose 108 MG/DL Total Protein 5.3 GM/DL Calcium Level 7.3 MG/DL Sodium Level 140 MEQ/L Potassium Level 3.4 MEQ/L Chloride Level 108 MEQ/L Carbon Dioxide Level 23.8 MEQ/L Anion Gap 8 MEQ/L Estimat Glomerular Filtration Rate 80 ML/MIN Lactic Acid Level 2.5 mmol/L Protein Corrected Calcium 8.3 MG/DL Vitamin B12 Level 156 PG/ML Microbiology Microbiology 03/31/17 Aerobic Blood Culture, Received Pending 03/31/17 Anaerobic Blood Culture, Received Pending 03/31/17 Aerobic Blood Culture, Received Pending 03/31/17 Anaerobic Blood Culture, Received Pending Imaging Remarks Last Impressions Lower Extremity Ultrasound 03/31/17 Signed Impressions: Service Date/Time: Friday, March 31, 2017 18:53 - CONCLUSION: Normal examination. Wilber Riley MD Chest X-Ray 03/31/17 Signed Impressions: Service Date/Time: Friday, March 31, 2017 18:12 - CONCLUSION: 1. Small bilateral effusions. Minimal subsegmental basilar airspace disease most characteristic of atelectasis. Cannot exclude mild bronchopneumonia. Wilber Riley MD Lumbar Spine MRI 03/29/17 Signed Impressions: Service Date/Time: Wednesday, March 29, 2017 23:48 - CONCLUSION: 1. Limited examination due to patient motion. 2. No evidence for abnormal enhancement or edema to suggest discitis/osteomyelitis. 3. Degenerative spondylosis of the lumbar spine most prominently at L2-3 and L4-5, as above. Vern Booth MD Head Magnetic Resonance Angiography 03/29/17 Signed Impressions: Service Date/Time: Wednesday, March 29, 2017 23:48 - CONCLUSION: 1. Unremarkable MRA examination of the head. No evidence for large vessel occlusion or stenosis. Vern Booth MD Head CT 03/29/17 Signed Impressions: Service Date/Time: Wednesday, March 29, 2017 19:58 - CONCLUSION: 1. No acute findings. Chronic white matter ischemic changes. Wilber Riley MD Brain MRI 03/29/17 Signed Impressions: Service Date/Time: Wednesday, March 29, 2017 23:48 - CONCLUSION: 1. Senescent changes with moderate small vessel ischemic white matter demyelination. 2. Otherwise, unremarkable MRI examination of the brain. No evidence for acute ischemia or abnormal enhancement/mass. Vern Booth MD Abdomen/Pelvis CT 03/29/17 0000 Signed Impressions: Service Date/Time: Wednesday, March 29, 2017 20:03 - CONCLUSION: 1. No acute findings within the abdomen and pelvis. Specifically no obstructive uropathy or bowel obstruction. 2. Multiple calcified gallstones. 3. Splenomegaly. Wilber Riley MD Current Medications Administered Medications Medications (Trade) Dose Ordered Sig/Susu Route PRN Reason Start Time Stop Time Status Last Admin Dose Admin Sodium Chloride 1,000 ml @ 75 mls/hr [id number] IV 03/29/17 22:31 03/31/17 06:33 Sodium Chloride (NS Flush) 2 ml UNSCH PRN IV FLUSH FLUSH AFTER USING IV ACCESS 03/29/17 22:45 03/30/17 01:06 Sodium Chloride (NS Flush) 2 ml BID IV FLUSH 03/30/17 09:00 03/31/17 09:47 Acetaminophen (Tylenol) 650 mg Q4H PRN PO TEMP > 100.4 03/29/17 22:45 03/31/17 18:22 Heparin Sodium (Porcine) (Heparin Inj) 5,000 units Q12H SQ 03/29/17 23:00 03/31/17 22:05 Famotidine (Pepcid) 10 mg BID PO 03/30/17 09:00 03/31/17 22:06 Aspirin (Ecotrin Ec) 81 mg DAILY PO 03/29/17 23:15 03/31/17 09:46 Vancomycin HCl 1000 mg/Sodium Chloride 250 ml @ 250 mls/hr WOOD CUTTER IV 03/31/17 09:15 04/03/17 09:14 03/31/17 09:47 Piperacillin Sod/ Tazobactam Sod 50 ml @ 100 mls/hr Q6H IV 03/31/17 10:00 04/01/17 03:19 (Hansa Horner) Physical Exam General General Appearance: Well Developed, Well Nourished, No Acute Distress, Pale, Anxious (Hansa Horner) Eyes Eye Exam: Pupils Equal, Pupils Reactive (Hansa Horner) Ears & Nose Ears & Nose Exam: Nasal Mucosa [place]hili (Crane,Susan M. FLOOR COVERING LAYER) Throat Throat Exam: Oral Mucosa Sehili & Moist (Lupe Horneran M. FLOOR COVERING LAYER) Neck Neck Exam: Neck Supple, Trachea Midline (SiriLupe davilaan M. FLOOR COVERING LAYER) Pulmonary Resp Exam: Decreased Bases, Diminished Breath Sounds (SiriLupe davilaan M. FLOOR COVERING LAYER) Cardiology CV Exam: Tachycardia (mild 104), Murmur CV Remarks Systolic murmur (Crane,Hansa M. FLOOR COVERING LAYER) Gastrointestinal/Abdomen GI Exam: Soft, Non-Tender, Bowel Sounds Present, Non-Distended (Siri,Susan M. FLOOR COVERING LAYER) Musculoskeletal MS Exam: Joints Intact (Hansa Horner M. FLOOR COVERING LAYER) Integumentary Skin Exam: Warm, Dry (SiriLupe davilaan M. FLOOR COVERING LAYER) Extremeties Extremities Exam: No Edema, Pedal Pulses Palpable (Crane,Hansa M. FLOOR COVERING LAYER) Neurologic Neuro Exam: Alert, Awake, Oriented, Speech Clear, Moving All Extremities, No Focal Deficits (Hansa Horner M. FLOOR COVERING LAYER) Psychiatric Psych Exam: Appropriate Responses (Hansa Horner M. FLOOR COVERING LAYER) VTE Prophylaxis VTE Prophylaxis Meds: Heparin (Lupe Horneran M. FLOOR COVERING LAYER) Assessment/Plan Problem List: (1) Fever of unknown origin ICD Codes: R50.9 - Fever, unspecified Status: Acute (2) Unsteady gait ICD Codes: R26.81 - Unsteadiness on feet Status: Acute (3) Thrombocytopenia ICD Codes: D69.6 - Thrombocytopenia, unspecified Status: Acute (4) Protein calorie malnutrition ICD Codes: E46 - Unspecified protein-calorie malnutrition Status: Acute (5) Anemia ICD Codes: D64.9 - Anemia, unspecified Status: Chronic (6) HTN (hypertension) ICD Codes: I10 - Essential (primary) hypertension Status: Chronic (7) Splenomegaly ICD Codes: R16.1 - Splenomegaly, not elsewhere classified Status: Acute (8) Elevated C-reactive protein ICD Codes: R79.82 - Elevated C-reactive protein (CRP) Status: Acute (9) UTI (urinary tract infection) ICD Codes: N39.0 - Urinary tract infection, site not specified Status: Acute (10) Murmur ICD Codes: R01.1 - Cardiac murmur, unspecified Status: Chronic Assessment/Plan Vital signs reviewed, blood pressure 97/58, pulse 104 Labs reviewed/procedures, 2-D echo report pending, ultrasound lower extremities without DVT, positive blood cultures Monitor bowel regimen Constipation, probable mild no BM in 3 days, but decreased activity and probable mild dehydration. Discussed bowel regimen and encourage patient to take meds today Left lower extremity weakness, fever, elevated CRP. , Symptoms for one and a half weeks before coming for evaluation Possible bronchial pneumonia Blood cultures positive, continue vancomycin and Zosyn IV as well as IV fluids Continue antibiotics, diminished breath sounds with low to medium volumes Possible UTI, culture is pending, patient is voiding without any dysuria, monitor I&O Debility, probable secondary to bronchial pneumonia, physical therapy to work with patient, out of bed up in chair today possible Tachycardia, probable secondary to fever and pneumonia IV fluids 75 cc an hour, monitor lung sounds Murmur, systolic 2-D echo pending results, patient states test was done last night Heparin for DVT prophylaxis Pepcid for GI prophylaxis Consult physical therapy for evaluation Discussed with RN Discussed with Dr. Vyas, seen on his behalf Discussed with patient and family member (Hansa Horner) Assessment/Plan pt seen and examined with Jaelyn watkins at bedside labs and rad data reviewed meds reviewed dc zosyn start flagyl and cefipime dw pt and G daughter at bedside plan of care dw car rider stool softner for constipation (Ani Vyas MD) Problem Qualifiers (1) Protein calorie malnutrition: Qualified Codes: E44.0 - Moderate protein-calorie malnutrition (2) Anemia: Qualified Codes: D64.9 - Anemia, unspecified (3) HTN (hypertension): Qualified Codes: I10 - Essential (primary) hypertension (4) UTI (urinary tract infection): Qualified Codes: N39.0 - Urinary tract infection, site not specified Hansa Horner Apr 01, 2017 07:21 Ani Vyas MD Apr 01, 2017 15:23
[2017-04-01] MEDS: SODIUM CHLOR 0.9% 1000 ML INJ 1,000 ML IV SCH ×3 (08:46→23:50)
[2017-04-01] MEDS: FAMOTIDINE 20 MG TAB PO SCH ×2 (09:05→23:49)
[2017-04-01] MEDS: ASPIRIN EC 81 MG TABEC PO SCH (09:05)
[2017-04-01] MEDS: SODIUM CHLORIDE 0.9% FLUSH 10 ML FLUSH IV FLUSH SCH ×2 (09:05→23:49)
[2017-04-01] MEDS: HEPARIN SODIUM - SQ 10,000 UNITS/ML VIAL SQ SCH ×2 (11:00→23:49)
[2017-04-01 11:55] LABS: HEMATOCRIT 30.5 % (39.0-51.0); MEAN CELL VOLUME 81.6 FL (80.0-100.0); MEAN CORPUSCULAR HGB CONC 33.1 % (32.0-36.0); PLATELET COUNT 85 TH/MM3 (150-450); RED BLOOD COUNT 3.73 MIL/MM3 (4.50-5.90); RED CELL DISTRIBUTION WIDTH 14.9 % (11.6-17.2); WHITE BLOOD COUNT 3.9 TH/MM3 (4.0-11.0)
[2017-04-01 11:58] LABS: REVIEW FLAG FINAL
[2017-04-01 12:18] LABS: BICARBONATE 23.1 MEQ/L (21.0-32.0); POTASSIUM 3.2 MEQ/L (3.5-5.1)
[2017-04-01 13:13] LABS: CALCIUM-PROTEIN CORRECTED 8.3 MG/DL (8.5-10.1)
[2017-04-01] MEDS: ACETAMINOPHEN 325 MG TAB PO PRN ×2 (15:25→23:49)
[2017-04-01] MEDS ORDERED: POTASSIUM CHLORIDE 20 MEQ CONTROLLED RELEASE TAB PO ONE (15:30)
[2017-04-01] MEDS: metroNIDAZOLE 500 MG INJ 100 ML IV SCH ×2 (15:53→23:55)
[2017-04-01] MEDS: CEFEPIME INJ 2,000 MG in SODIUM CHLORIDE 0.9% INJ 100 ML IV SCH (17:25)
[2017-04-02] VITALS (17 sets, daily range): BP systolic 89–112; BP diastolic 50–62; PULSE 105–133; RESP 16–30; TEMP 98.5–102.2; O2SAT 93–99
--- NOTE | 2017-04-02 07:23 | HHI.PR ---
Subjective Subjective Remarks Shortness of breath, respiratory rate 24 at rest IV fluids running at 75 cc an hour, DC for now Dual neb treatment ordered every 4 while awake Lasix 20 g IV 1 given Systolic murmur, left sternal border, 2-D echo pending Monitoring bowel regimen, BM this a.m. normal consistency patient states Denies any chest pain Weak, cough, afebrile (Hansa Horner) Review of Systems Constitutional Constitutional: Fatigue, Weakness Constitutional Remarks 10 point ROS done positives noted (Hansa Horner) Pulmonary Respiratory: Coughing (nonproductive), Shortness of Breath (volumes low) (Hansa Horner) Cardiology CV Remarks Tachycardia mild (Hansa Horner) Musculoskeletal MS: Weakness, Stiffness, Swelling (trace lower extremity) (Hansa Horner) Psychiatric Psychiatric: Normal Mood, Anxiety (Hansa Horner) Vitals/Results Vital Signs Vital Signs Date Time Temp Pulse Resp B/P (MAP) Pulse Ox O2 Delivery O2 Flow Rate FiO2 04/02/17 07:03 98.6 116 16 109/58 (75) 93 04/02/17 05:07 133 96 04/02/17 03:28 98.6 116 18 105/62 (76) 97 04/02/17 02:25 98.5 04/01/17 23:51 118 18 100/60 (73) 94 04/01/17 21:36 100.9 110 18 118/60 (79) 98 04/01/17 16:26 97.9 129 20 118/69 (85) 98 04/01/17 15:14 115 04/01/17 11:29 100.4 111 19 118/61 (80) 94 04/01/17 07:52 98.6 109 17 106/52 (70) 97 (Hansa Horner) CBC/BMP: 04/01/17 1128 04/01/17 1128 Lab Results Laboratory Tests Test 04/01/17 11:28 White Blood Count 3.9 TH/MM3 Red Blood Count 3.73 MIL/MM3 Hemoglobin 10.1 GM/DL Hematocrit 30.5 % Mean Corpuscular Volume 81.6 FL Mean Corpuscular Hemoglobin 27.0 PG Mean Corpuscular Hemoglobin Concent 33.1 % Red Cell Distribution Width 14.9 % Platelet Count 85 TH/MM3 Mean Platelet Volume 8.7 FL Blood Urea Nitrogen 13 MG/DL Creatinine 0.92 MG/DL Random Glucose 120 MG/DL Total Protein 4.5 GM/DL Calcium Level 6.9 MG/DL Sodium Level 138 MEQ/L Potassium Level 3.2 MEQ/L Chloride Level 108 MEQ/L Carbon Dioxide Level 23.1 MEQ/L Anion Gap 7 MEQ/L Estimat Glomerular Filtration Rate 79 ML/MIN Protein Corrected Calcium 8.3 MG/DL Imaging Remarks Last Impressions Lower Extremity Ultrasound 03/31/17 Signed Impressions: Service Date/Time: Friday, March 31, 2017 18:53 - CONCLUSION: Normal examination. Wilber Riley MD Chest X-Ray 03/31/17 Signed Impressions: Service Date/Time: Friday, March 31, 2017 18:12 - CONCLUSION: 1. Small bilateral effusions. Minimal subsegmental basilar airspace disease most characteristic of atelectasis. Cannot exclude mild bronchopneumonia. Wilber Riley MD Lumbar Spine MRI 03/29/17 Signed Impressions: Service Date/Time: Wednesday, March 29, 2017 23:48 - CONCLUSION: 1. Limited examination due to patient motion. 2. No evidence for abnormal enhancement or edema to suggest discitis/osteomyelitis. 3. Degenerative spondylosis of the lumbar spine most prominently at L2-3 and L4-5, as above. Vern Booth MD Head Magnetic Resonance Angiography 03/29/17 Signed Impressions: Service Date/Time: Wednesday, March 29, 2017 23:48 - CONCLUSION: 1. Unremarkable MRA examination of the head. No evidence for large vessel occlusion or stenosis. Vern Booth MD Head CT 03/29/17 Signed Impressions: Service Date/Time: Wednesday, March 29, 2017 19:58 - CONCLUSION: 1. No acute findings. Chronic white matter ischemic changes. Wilber Riley MD Brain MRI 03/29/17 Signed Impressions: Service Date/Time: Wednesday, March 29, 2017 23:48 - CONCLUSION: 1. Senescent changes with moderate small vessel ischemic white matter demyelination. 2. Otherwise, unremarkable MRI examination of the brain. No evidence for acute ischemia or abnormal enhancement/mass. Vern Booth MD Abdomen/Pelvis CT 03/29/17 0000 Signed Impressions: Service Date/Time: Wednesday, March 29, 2017 20:03 - CONCLUSION: 1. No acute findings within the abdomen and pelvis. Specifically no obstructive uropathy or bowel obstruction. 2. Multiple calcified gallstones. 3. Splenomegaly. Wilber Riley MD Current Medications Administered Medications Medications (Trade) Dose Ordered Sig/Ssuu Route PRN Reason Start Time Stop Time Status Last Admin Dose Admin Sodium Chloride (NS Flush) 2 ml UNSCH PRN IV FLUSH FLUSH AFTER USING IV ACCESS 03/29/17 22:45 03/30/17 01:06 Sodium Chloride (NS Flush) 2 ml BID IV FLUSH 03/30/17 09:00 04/01/17 23:49 Acetaminophen (Tylenol) 650 mg Q4H PRN PO TEMP > 100.4 03/29/17 22:45 04/01/17 23:49 Heparin Sodium (Porcine) (Heparin Inj) 5,000 units Q12H SQ 03/29/17 23:00 04/01/17 23:49 Famotidine (Pepcid) 10 mg BID PO 03/30/17 09:00 04/01/17 23:49 Aspirin (Ecotrin Ec) 81 mg DAILY PO 03/29/17 23:15 04/01/17 09:05 Vancomycin HCl 1000 mg/Sodium Chloride 250 ml @ 250 mls/hr RETAIL BUYER IV 03/31/17 09:15 04/03/17 09:14 03/31/17 09:47 Cefepime HCl 2000 mg/Sodium Chloride 100 ml @ 200 mls/hr Q12H IV 04/01/17 18:00 04/02/17 07:36 Metronidazole 100 ml @ 100 mls/hr Q8H IV 04/01/17 16:00 04/01/17 23:55 (Hansa Horner) Physical Exam General General Appearance: Well Developed, Well Nourished, No Acute Distress, Pale, Anxious (Hansa Horner) Eyes Eye Exam: Pupils Equal, Pupils Reactive (Hansa Horner) Ears & Nose Ears & Nose Exam: Nasal Mucosa [place] ([place],Hansa M. STACK YIELD ENGINEER) Throat Throat Exam: Oral Mucosa [place] & Moist (pale) (Hansa HornerP) Neck Neck Exam: Neck Supple, Trachea Midline (Hansa Horner STACK YIELD ENGINEER) Pulmonary Resp Exam: Decreased Bases, Diminished Breath Sounds, Poor Inspiratory Effort ( low volumes at rest) Resp Remarks Expiratory wheezes noted bilateral mid to lower bases (Hansa Horner STACK YIELD ENGINEER) Cardiology CV Exam: Tachycardia (mild 104), Murmur CV Remarks Systolic murmur left sternal border (Hansa Horner STACK YIELD ENGINEER) Gastrointestinal/Abdomen GI Exam: Soft, Non-Tender, Bowel Sounds Present, Non-Distended (Hansa Horner STACK YIELD ENGINEER) Musculoskeletal MS Exam: Joints Intact MS Remarks Weak, (Hansa HornerP) Integumentary Skin Exam: Warm, Dry, Intact (thin turgor) (Hansa HornerP) Extremeties Extremities Exam: Pedal Pulses Palpable, Trace Edema (Hansa HornerP) Neurologic Neuro Exam: Alert, Awake, Oriented, Speech Clear, Moving All Extremities, No Focal Deficits (Hansa HornerP) Psychiatric Psych Exam: Appropriate Responses (Hansa Horner) VTE Prophylaxis VTE Prophylaxis Meds: Heparin (Hansa HornerP) Assessment/Plan Problem List: (1) Fever of unknown origin ICD Codes: R50.9 - Fever, unspecified Status: Acute (2) Unsteady gait ICD Codes: R26.81 - Unsteadiness on feet Status: Acute (3) Thrombocytopenia ICD Codes: D69.6 - Thrombocytopenia, unspecified Status: Acute (4) Protein calorie malnutrition ICD Codes: E46 - Unspecified protein-calorie malnutrition Status: Acute (5) Anemia ICD Codes: D64.9 - Anemia, unspecified Status: Chronic (6) HTN (hypertension) ICD Codes: I10 - Essential (primary) hypertension Status: Chronic (7) Splenomegaly ICD Codes: R16.1 - Splenomegaly, not elsewhere classified Status: Acute (8) Elevated C-reactive protein ICD Codes: R79.82 - Elevated C-reactive protein (CRP) Status: Acute (9) UTI (urinary tract infection) ICD Codes: N39.0 - Urinary tract infection, site not specified Status: Acute (10) Murmur ICD Codes: R01.1 - Cardiac murmur, unspecified Status: Chronic Assessment/Plan Assessment/Plan Vital signs reviewed, blood pressure 109/58, pulse 116, sinus tachycardia with PACs noted on telemetry Labs reviewed/procedures, 2-D echo report pending nurse to call for report, ultrasound lower extremities without DVT, positive blood cultures Monitor bowel regimen Constipation, probable mild no BM in 3 days, but decreased activity and probable mild dehydration. Discussed bowel regimen and encourage patient to take meds today Left lower extremity weakness, fever, elevated CRP. , Symptoms for one and a half weeks before coming for evaluation Possible bronchial pneumonia Blood cultures positive, continue vancomycin and Zosyn IV, patient has received 7 L of IV fluid, pulse remains tachycardic, expiratory wheezing increased mid to lower air dan posterior, dual nebs ordered every 4 hours while awake, IV fluids DC'd for now, Lasix 20 mg IV 1 dose, labs are still pending, will add 20 mEq of potassium by mouth with IV Lasix dose Possible UTI, culture is pending, patient is voiding without any dysuria, monitor I&O, small amount of urine noted in urinal, orange, with cloudy consistency Debility, probable secondary to bronchial pneumonia, physical therapy to work with patient, out of bed up in chair today possible Tachycardia, probable secondary to fever and pneumonia Heart rate continues to be elevated 116, will give IV Lasix 1 dose and hold fluids for now, Murmur, systolic 2-D echo pending results, patient states test was done last night, reviewing for results Heparin for DVT prophylaxis Pepcid for GI prophylaxis Consult physical therapy for evaluation Discussed with RN Discussed with Dr. Vyas, seen on his behalf Discussed with patient (SiriHansa Earline TEJADA) Assessment/Plan pt seen and examined as above with daughter at bedside labs and rad data reviewed 2 d echo report reviewed mod to severe agree with above plan of care as yany slade pt and june slade rn cond guarded grant Id input plan for cardiology consult (Ani Vyas MD) Problem Qualifiers (1) Protein calorie malnutrition: Qualified Codes: E44.0 - Moderate protein-calorie malnutrition (2) Anemia: Qualified Codes: D64.9 - Anemia, unspecified (3) HTN (hypertension): Qualified Codes: I10 - Essential (primary) hypertension (4) UTI (urinary tract infection): Qualified Codes: N39.0 - Urinary tract infection, site not specified Hansa Horner Apr 02, 2017 07:23 Ani Vyas MD Apr 02, 2017 10:37
[2017-04-02] MEDS: CEFEPIME INJ 2,000 MG in SODIUM CHLORIDE 0.9% INJ 100 ML IV SCH ×2 (07:36→19:53)
[2017-04-02 08:17] LABS: HEMATOCRIT 29.6 % (39.0-51.0); MEAN CELL VOLUME 82.6 FL (80.0-100.0); MEAN CORPUSCULAR HEMOGLOBIN 27.6 PG (27.0-34.0); MEAN CORPUSCULAR HGB CONC 33.4 % (32.0-36.0); PLATELET COUNT 78 TH/MM3 (150-450); RED BLOOD COUNT 3.58 MIL/MM3 (4.50-5.90); RED CELL DISTRIBUTION WIDTH 15.2 % (11.6-17.2); WHITE BLOOD COUNT 4.6 TH/MM3 (4.0-11.0)
--- NOTE | 2017-04-02 08:33 | ECHRPT ---
Indication: SOB CONCLUSIONS Normal left ventricular size. Wall thickness is normal. The left ventricular systolic function is low normal with an estimated ejection fraction in the rang e of 50- 55%. Moderate to severe aortic valve stenosis. (Though calcuated in the severe range, visually the valve opens reasonably well, particularly in the short axis views.) Aortic valve area is 0.85 cm. Aortic valve mean gradient is 46 mmHg, Max gradient 77 mmHg Moderate thickening of the aortic valve leaflets. There is a small pericardial effusion present. No hemodynamically significant echocardiographic features were observed (no pre-tamponade physiology). A prominent eustachian valve is observed in the right atrium (benign finding). BP: / HR: Rhythm: MEASUREMENTS (Male / Female) Normal Values Technical Quality:Good 2D ECHO LV Diastolic Diameter PLAX 4.9 cm 4.2 - 5.9 / 3.9 - 5.3 cm LV Systolic Diameter PLAX 3.8 cm IVS Diastolic Thickness 1.0 cm 0.6 - 1.0 / 0.6 - 0.9 cm LVPW Diastolic Thickness 0.8 cm 0.6 - 1.0 / 0.6 - 0.9 cm LV Relative Wall Thickness 0.4 RV Internal Dim ED PLAX 2.1 cm LVOT Diameter 2.0 cm DOPPLER AV Peak Velocity 438.0 cm/s AV Peak Gradient 76.7 mmHg AV Mean Gradient 46.0 mmHg AV Velocity Time Integral 91.9 cm LVOT Peak Velocity 119.0 cm/s LVOT Peak Gradient 5.7 mmHg LVOT Velocity Time Integral 24.9 cm AV Area Cont Eq vti 0.9 cm AV Area Cont Eq pk 0.9 cm MV Peak Velocity 205.0 cm/s MV Peak Gradient 16.8 mmHg MV Mean Velocity 102.0 cm/s MV Mean Gradient 6.0 mmHg Mitral E Point Velocity 123.0 cm/s Mitral A Point Velocity 173.0 cm/s Mitral E to A Ratio 0.7 TR Peak Velocity 368.0 cm/s TR Peak Gradient 54.2 mmHg FINDINGS LEFT VENTRICLE Normal left ventricular size. Wall thickness is normal. The left ventricular systolic function is low normal with an estimated ejection fraction in the rang e of 50- 55%. RIGHT VENTRICLE Normal right ventricular size and systolic function. LEFT ATRIUM The left atrial size is normal. RIGHT ATRIUM The right atrial size is normal. A prominent eustachian valve is observed in the right atrium (benign finding). ATRIAL SEPTUM Normal atrial septal thickness without atrial level shunting by limited color doppler interrogation. AORTA The aortic root and proximal ascending aorta are normal in size on limited imaging. MITRAL VALVE Mitral annular calcification is present. Mitral valve mean gradient is 6 mmHg. AORTIC VALVE Moderate to severe aortic valve stenosis. Aortic valve area is 0.85 cm. Moderate thickening of the aortic valve leaflets. TRICUSPID VALVE Structurally normal tricuspid valve. No tricuspid valve stenosis or regurgitation. PULMONARY VALVE The pulmonary valve is not well visualized. VESSELS The inferior vena cava is normal in size. PERICARDIUM There is a small pericardial effusion present. No hemodynamically significant echocardiographic features were observed (no pre-tamponade physiology). Hans Hernandez MD (Electronically Signed) Final Date:02 April 2017 08:32
[2017-04-02 08:51] LABS: BICARBONATE 20.2 MEQ/L (21.0-32.0); POTASSIUM 3.2 MEQ/L (3.5-5.1)
[2017-04-02 08:56] LABS: REVIEW FLAG AUTO DIFF
[2017-04-02] MEDS ORDERED: POTASSIUM CHLORIDE 20 MEQ CONTROLLED RELEASE TAB PO ONE (09:00)
[2017-04-02] MEDS ORDERED: FUROSEMIDE 20 MG/2 ML VIAL IV PUSH ONE (09:00)
[2017-04-02] MEDS: SODIUM CHLORIDE 0.9% FLUSH 10 ML FLUSH IV FLUSH SCH ×2 (09:00→22:04)
[2017-04-02] MEDS: metroNIDAZOLE 500 MG INJ 100 ML IV SCH ×2 (09:30→16:13)
[2017-04-02] MEDS: FAMOTIDINE 20 MG TAB PO SCH ×2 (09:31→22:04)
[2017-04-02] MEDS: ASPIRIN EC 81 MG TABEC PO SCH (09:31)
[2017-04-02] MEDS: HEPARIN SODIUM - SQ 10,000 UNITS/ML VIAL SQ SCH ×2 (10:04→23:39)
[2017-04-02] MEDS: RESP: ALBUTEROL 2.5 MG/IPRATROPIUM 0.5 MG NEB (SCH) NEB ×3 (12:35→20:14)
--- NOTE | 2017-04-02 13:02 | MB ---
cc: HANS HERNANDEZ MD DATE OF CONSULTATION: 04/02/2017 REASON FOR CONSULTATION: Aortic stenosis HISTORY OF PRESENT ILLNESS: The patient is a pleasant 82-year-old gentleman who presented with poor appetite, fevers and chills. He had a murmur on exam and thus I was consulted. He denies any cardiac symptoms such as chest pain, shortness of breath. He does have mild orthostasis but no actual syncope. The daughter notes that there is significant depression involved given the patient's recent . MEDICATIONS: 1. Cefepime. 2. Flagyl. 3. Vancomycin 4. Aspirin 5. Pepcid ALLERGIES: NO KNOWN DRUG ALLERGIES. PHYSICAL EXAMINATION: VITAL SIGNS: Temperature 99.6, pulse 107, respiratory rate 18, blood pressure 112/58, sating 99. GENERAL: A pleasant elderly gentleman in no distress. NECK: No JVD. LUNGS: Clear to auscultation bilaterally. CARDIOVASCULAR: Regular rhythm. A 2 to 3/6 systolic murmur appreciated, loudest at the right upper sternal border. ABDOMEN: Benign. EXTREMITIES: No edema. LABORATORY DATA: Sodium 140, potassium 2.2, chloride 110, bicarb 20.2. BUN 15, creatinine 0.8, glucose 140. INR 1.2. White count 4.6, hematocrit 29.6, platelet count 78. EKG: Not done. Echocardiogram: Notable for an ejection fraction of 50 to 65% with moderate to severe aortic stenosis. IMPRESSION 1. Moderate to severe aortic stenosis. The patient aortic stenosis but the valve did appear to open better than expected. His increased rate may be due to higher cardiac output in the setting of sepsis. I discussed this at length and he has no cardiac symptoms except for mild orthostasis. The patient himself is not even sure whether he would consider invasive procedure such as TAVR anyway. I can discuss this with him as an outpatient, regardless while he is having ongoing infectious process that would be deferred. 2. Cardiology will be available on an as-needed basis. Please call with any questions. Thank you for the opportunity to participate in the patient's care. Hans Hernandez MD [facility] /12:29 PM /12:52 PM
[2017-04-02] MEDS ORDERED: HALOPERIDOL LACTATE 5 MG/ML AMP IM PRN (14:45)
[2017-04-02] MEDS: SODIUM CHLOR 0.9% 1000 ML INJ 1,000 ML IV SCH (16:12)
[2017-04-02] MEDS: ACETAMINOPHEN 325 MG TAB PO PRN (22:04)
[2017-04-03] VITALS (10 sets, daily range): BP systolic 80–102; BP diastolic 51–55; PULSE 78–131; RESP 17–24; TEMP 97.7–100.9; O2SAT 91–98
[2017-04-03] MEDS: metroNIDAZOLE 500 MG INJ 100 ML IV SCH ×3 (01:27→16:42)
[2017-04-03] MEDS: POTASSIUM CHLORIDE INJ 10 MEQ in SODIUM CHLOR 0.9% 1000 ML INJ 1,000 ML IV SCH ×2 (02:52→18:33)
[2017-04-03 05:05] LABS: HEMATOCRIT 28.7 % (39.0-51.0); MEAN CELL VOLUME 81.4 FL (80.0-100.0); MEAN CORPUSCULAR HEMOGLOBIN 27.5 PG (27.0-34.0); MEAN CORPUSCULAR HGB CONC 33.7 % (32.0-36.0); PLATELET COUNT 63 TH/MM3 (150-450); RED BLOOD COUNT 3.52 MIL/MM3 (4.50-5.90); RED CELL DISTRIBUTION WIDTH 15.1 % (11.6-17.2); WHITE BLOOD COUNT 4.3 TH/MM3 (4.0-11.0)
[2017-04-03 05:13] LABS: REVIEW FLAG FINAL
[2017-04-03 05:39] LABS: BICARBONATE 22.9 MEQ/L (21.0-32.0); MAGNESIUM 1.8 MG/DL (1.5-2.5)
[2017-04-03 05:57] LABS: POTASSIUM 2.9 MEQ/L (3.5-5.1)
[2017-04-03] MEDS: CEFEPIME INJ 2,000 MG in SODIUM CHLORIDE 0.9% INJ 100 ML IV SCH ×2 (06:00→18:34)
[2017-04-03 06:10] LABS: CALCIUM-PROTEIN CORRECTED 8.5 MG/DL (8.5-10.1)
[2017-04-03] MEDS ORDERED: POTASSIUM CHLOR 20 MEQ PREMIX 100 ML IV ONE (06:30)
[2017-04-03] MEDS: RESP: ALBUTEROL 2.5 MG/IPRATROPIUM 0.5 MG NEB (SCH) NEB ×4 (07:09→20:00)
--- NOTE | 2017-04-03 07:36 | HHI.PR ---
Subjective Subjective Remarks potassium low, 2.9, IV doses and PO ordered. No acute SOB today beginning to feel better. Encouraged to be OOB afebrile Review of Systems Constitutional Constitutional: Fatigue, Weakness Constitutional Remarks 10 point ROS done positives noted Pulmonary Respiratory: Coughing (nonproductive), Shortness of Breath (improved SOB) Cardiology CV Remarks Pulse < 100 today Musculoskeletal MS: Weakness, Stiffness, Swelling (trace lower extremity) Psychiatric Psychiatric: Normal Mood, Anxiety Vitals/Results Vital Signs Vital Signs Date Time Temp Pulse Resp B/P (MAP) Pulse Ox O2 Delivery O2 Flow Rate FiO2 04/03/17 07:09 95 21 04/03/17 06:00 98.0 78 18 102/55 (71) 97 04/03/17 04:35 99.3 128 86/53 (64) 98 04/03/17 03:45 131 04/03/17 01:45 100.9 04/03/17 00:00 120 04/02/17 23:35 99.0 115 18 105/58 (74) 95 04/02/17 23:30 99.0 107 17 89/50 (63) 96 04/02/17 23:04 12 04/02/17 20:29 102.2 125 18 102/54 (70) 96 04/02/17 20:15 99 04/02/17 20:00 118 04/02/17 18:00 110 04/02/17 18:00 110 04/02/17 16:59 99.8 119 30 100/55 (70) 93 04/02/17 16:35 99 04/02/17 12:35 95 21 04/02/17 12:00 105 04/02/17 11:20 99.6 107 18 112/58 (76) 99 CBC/BMP: 04/03/17 0450 04/03/17 0450 Lab Results Laboratory Tests Test 04/02/17 08:00 04/03/17 04:50 White Blood Count 4.6 TH/MM3 4.3 TH/MM3 Red Blood Count 3.58 MIL/MM3 3.52 MIL/MM3 Hemoglobin 9.9 GM/DL 9.7 GM/DL Hematocrit 29.6 % 28.7 % Mean Corpuscular Volume 82.6 FL 81.4 FL Mean Corpuscular Hemoglobin 27.6 PG 27.5 PG Mean Corpuscular Hemoglobin Concent 33.4 % 33.7 % Red Cell Distribution Width 15.2 % 15.1 % Platelet Count 78 TH/MM3 63 TH/MM3 Mean Platelet Volume 9.3 FL 9.4 FL Blood Urea Nitrogen 15 MG/DL 18 MG/DL Creatinine 0.80 MG/DL 0.93 MG/DL Random Glucose 140 MG/DL 147 MG/DL Total Protein 4.4 GM/DL 4.5 GM/DL Calcium Level 7.4 MG/DL 7.1 MG/DL Sodium Level 140 MEQ/L 141 MEQ/L Potassium Level 3.2 MEQ/L 2.9 MEQ/L Chloride Level 110 MEQ/L 109 MEQ/L Carbon Dioxide Level 20.2 MEQ/L 22.9 MEQ/L Anion Gap 10 MEQ/L 9 MEQ/L Estimat Glomerular Filtration Rate 92 ML/MIN 78 ML/MIN Protein Corrected Calcium 9.0 MG/DL 8.5 MG/DL Magnesium Level 1.8 MG/DL Physical Exam General General Appearance: Well Developed, Well Nourished, No Acute Distress, Pale, Anxious, Obese Eyes Eye Exam: Pupils Equal, Pupils Reactive Ears & Nose Ears & Nose Exam: Nasal Mucosa [place] (pale) Throat Throat Exam: Oral Mucosa [place] & Moist (pale) Neck Neck Exam: Neck Supple, Trachea Midline Pulmonary Resp Exam: Decreased Bases, Diminished Breath Sounds, Poor Inspiratory Effort ( low volumes at rest) Resp Remarks Expiratory wheezes noted bilateral mid to lower bases Cardiology CV Exam: Tachycardia (mild 104), Murmur CV Remarks Systolic murmur left sternal border Gastrointestinal/Abdomen GI Exam: Soft, Non-Tender, Bowel Sounds Present, Non-Distended Musculoskeletal MS Exam: Joints Intact MS Remarks Weak, Integumentary Skin Exam: Warm, Dry, Intact (thin turgor) Extremeties Extremities Exam: Pedal Pulses Palpable, Trace Edema Neurologic Neuro Exam: Alert, Awake, Oriented, Speech Clear, Moving All Extremities, No Focal Deficits Psychiatric Psych Exam: Appropriate Responses VTE Prophylaxis VTE Prophylaxis Meds: Heparin Assessment/Plan Problem List: (1) Fever of unknown origin ICD Codes: R50.9 - Fever, unspecified Status: Acute (2) Unsteady gait ICD Codes: R26.81 - Unsteadiness on feet Status: Acute (3) Thrombocytopenia ICD Codes: D69.6 - Thrombocytopenia, unspecified Status: Acute (4) Protein calorie malnutrition ICD Codes: E46 - Unspecified protein-calorie malnutrition Status: Acute (5) Anemia ICD Codes: D64.9 - Anemia, unspecified Status: Chronic (6) HTN (hypertension) ICD Codes: I10 - Essential (primary) hypertension Status: Chronic (7) Splenomegaly ICD Codes: R16.1 - Splenomegaly, not elsewhere classified Status: Acute (8) Elevated C-reactive protein ICD Codes: R79.82 - Elevated C-reactive protein (CRP) Status: Acute (9) UTI (urinary tract infection) ICD Codes: N39.0 - Urinary tract infection, site not specified Status: Acute (10) Murmur ICD Codes: R01.1 - Cardiac murmur, unspecified Status: Chronic Assessment/Plan Labs reviewed, Hypokalemia, IV and PO Potassium given, anemia, no acute blood loss, probable secondary to chronic disease Septicemia, positive blood cultures noted, Continue with IV antibiotic therapy Vancomycin and Zosyn. Appreciate ID input and plan of care. no leukocytosis noted. Monitor bowel regimen Constipation, probable mild no BM in 3 days, but decreased activity and probable mild dehydration. Discussed bowel regimen and encourage patient to take meds today Left lower extremity weakness, fever, elevated CRP. , Symptoms for one and a half weeks before coming for evaluation Possible bronchial pneumonia Blood cultures positive, continue vancomycin and Zosyn IV, patient has received 7 L of IV fluid, pulse remains tachycardic, expiratory wheezing increased mid to lower air dan posterior, duo nebs ordered every 4 hours while awake Possible UTI, culture shows probable contaminent, patient is voiding without any dysuria, monitor I&O Debility, probable secondary to bronchial pneumonia and septicemia, physical therapy to work with patient, out of bed up in chair today possible Tachycardia, probable secondary to fever and pneumonia Heart rate continues to be elevated 116, will give IV Lasix 1 dose and hold fluids for now, Systolic Murmur, appreciate cardiology input. Moderate to severe aortic stenosis noted, 2 d echo reviewed. Mild orthostasis was his only symptom. Will see as OP if needed. Heparin for DVT prophylaxis Pepcid for GI prophylaxis Consult physical therapy for evaluation Discussed with RN Discussed with Dr. Vyas, seen on his behalf Discussed with patient Problem Qualifiers (1) Protein calorie malnutrition: Qualified Codes: E44.0 - Moderate protein-calorie malnutrition (2) Anemia: Qualified Codes: D64.9 - Anemia, unspecified (3) HTN (hypertension): Qualified Codes: I10 - Essential (primary) hypertension (4) UTI (urinary tract infection): Qualified Codes: N39.0 - Urinary tract infection, site not specified Hansa Horner Apr 03, 2017 07:36
[2017-04-03] MEDS ORDERED: POTASSIUM CHLORIDE 25 MEQ EFFERVESCENT TAB PO ONE (08:00)
[2017-04-03] MEDS: SODIUM CHLORIDE 0.9% FLUSH 10 ML FLUSH IV FLUSH SCH ×2 (09:00→22:55)
[2017-04-03] MEDS: FAMOTIDINE 20 MG TAB PO SCH ×2 (10:34→22:46)
[2017-04-03] MEDS: ASPIRIN EC 81 MG TABEC PO SCH (10:36)
[2017-04-03] MEDS: HEPARIN SODIUM - SQ 10,000 UNITS/ML VIAL SQ SCH (11:39)
[2017-04-03] MEDS: POTASSIUM CHLOR 20 MEQ PREMIX 100 ML IV SCH ×3 (11:40→22:49)
[2017-04-03] MEDS: ACETAMINOPHEN 325 MG TAB PO PRN (16:40)
[2017-04-03] MEDS ORDERED: cefTRIAXone INJ 2,000 MG in SODIUM CHLORIDE 0.9% INJ 100 ML IV SCH (20:00)
--- NOTE | 2017-04-03 20:00 | HHI.IDPN ---
Subjective Subjective Remarks ID Xcover for Dr Beltre chart was reviewed pt is an 82 yo male presented with fever, night sweats for 1 month fever up to 102.2 daily since admission denies other complaints 2 D echo showed moderate to severe and no vegetations Dr Hernandez saw the pt , recommended o/p follow up Blood clx from admission + Staph hominis 2/2 sets , repeat blood clx neg @ 3 days ESR 11 Antibiotics cefepime flagyl Allergies: Coded Allergies: No Known Allergies (Verified , 03/29/17) Objective . Vital Signs Date Time Temp Pulse Resp B/P (MAP) Pulse Ox O2 Delivery O2 Flow Rate FiO2 04/03/17 12:17 98.6 116 24 80/51 (61) 98 04/03/17 07:30 98.2 118 22 97/52 (67) 91 04/03/17 07:09 95 21 04/03/17 06:00 98.0 78 18 102/55 (71) 97 04/03/17 04:35 99.3 128 86/53 (64) 98 04/03/17 03:45 131 04/03/17 01:45 100.9 04/03/17 00:00 120 04/02/17 23:35 99.0 115 18 105/58 (74) 95 04/02/17 23:30 99.0 107 17 89/50 (63) 96 04/02/17 23:04 12 04/02/17 20:29 102.2 125 18 102/54 (70) 96 04/02/17 20:15 99 04/02/17 20:00 118 . Laboratory Tests Test 04/02/17 08:00 04/03/17 04:50 White Blood Count 4.6 TH/MM3 4.3 TH/MM3 Red Blood Count 3.58 MIL/MM3 3.52 MIL/MM3 Hemoglobin 9.9 GM/DL 9.7 GM/DL Hematocrit 29.6 % 28.7 % Mean Corpuscular Volume 82.6 FL 81.4 FL Mean Corpuscular Hemoglobin 27.6 PG 27.5 PG Mean Corpuscular Hemoglobin Concent 33.4 % 33.7 % Red Cell Distribution Width 15.2 % 15.1 % Platelet Count 78 TH/MM3 63 TH/MM3 Mean Platelet Volume 9.3 FL 9.4 FL Laboratory Tests Test 04/02/17 08:00 04/03/17 04:50 Blood Urea Nitrogen 15 MG/DL 18 MG/DL Creatinine 0.80 MG/DL 0.93 MG/DL Random Glucose 140 MG/DL 147 MG/DL Total Protein 4.4 GM/DL 4.5 GM/DL Calcium Level 7.4 MG/DL 7.1 MG/DL Sodium Level 140 MEQ/L 141 MEQ/L Potassium Level 3.2 MEQ/L 2.9 MEQ/L Chloride Level 110 MEQ/L 109 MEQ/L Carbon Dioxide Level 20.2 MEQ/L 22.9 MEQ/L Anion Gap 10 MEQ/L 9 MEQ/L Estimat Glomerular Filtration Rate 92 ML/MIN 78 ML/MIN Protein Corrected Calcium 9.0 MG/DL 8.5 MG/DL Magnesium Level 1.8 MG/DL Imaging Last Impressions Lower Extremity Ultrasound 03/31/17 Signed Impressions: Service Date/Time: Friday, March 31, 2017 18:53 - CONCLUSION: Normal examination. Wilber Riley MD Chest X-Ray 03/31/17 Signed Impressions: Service Date/Time: Friday, March 31, 2017 18:12 - CONCLUSION: 1. Small bilateral effusions. Minimal subsegmental basilar airspace disease most characteristic of atelectasis. Cannot exclude mild bronchopneumonia. Wilber Riley MD Lumbar Spine MRI 03/29/17 Signed Impressions: Service Date/Time: Wednesday, March 29, 2017 23:48 - CONCLUSION: 1. Limited examination due to patient motion. 2. No evidence for abnormal enhancement or edema to suggest discitis/osteomyelitis. 3. Degenerative spondylosis of the lumbar spine most prominently at L2-3 and L4-5, as above. Vern Booth MD Head Magnetic Resonance Angiography 03/29/17 Signed Impressions: Service Date/Time: Wednesday, March 29, 2017 23:48 - CONCLUSION: 1. Unremarkable MRA examination of the head. No evidence for large vessel occlusion or stenosis. Vern Booth MD Head CT 03/29/17 Signed Impressions: Service Date/Time: Wednesday, March 29, 2017 19:58 - CONCLUSION: 1. No acute findings. Chronic white matter ischemic changes. Wilber Riley MD Brain MRI 03/29/17 Signed Impressions: Service Date/Time: Wednesday, March 29, 2017 23:48 - CONCLUSION: 1. Senescent changes with moderate small vessel ischemic white matter demyelination. 2. Otherwise, unremarkable MRI examination of the brain. No evidence for acute ischemia or abnormal enhancement/mass. Vern Booth MD Abdomen/Pelvis CT 03/29/17 0000 Signed Impressions: Service Date/Time: Wednesday, March 29, 2017 20:03 - CONCLUSION: 1. No acute findings within the abdomen and pelvis. Specifically no obstructive uropathy or bowel obstruction. 2. Multiple calcified gallstones. 3. Splenomegaly. Wilber Riley MD Physical Exam GENERAL: This is a well-nourished, well-developed patient, in no apparent distress. SKIN: No rashes, ecchymoses or lesions. Cool and dry. NO janeway lesions HEAD: Atraumatic. Normocephalic. No temporal or scalp tenderness. EYES: Pupils equal round and reactive. Extraocular motions intact. No scleral icterus. No injection or drainage. No conjunctival petechia ENT: Nose without bleeding, purulent drainage or septal hematoma. Throat without erythema, tonsillar hypertrophy or exudate. Uvula midline. Airway patent. NECK: Trachea midline. Supple, nontender, CARDIOVASCULAR: Harsh 3/6 holosytolic murmur with max on R upper sternal border RESPIRATORY: Clear to auscultation. Breath sounds equal bilaterally. No wheezes , rales, or rhonchi. GASTROINTESTINAL: Abdomen soft, non-tender, nondistended. No hepato-splenomegaly , or palpable masses. No guarding. MUSCULOSKELETAL: Extremities without clubbing, cyanosis, or edema. No joint tenderness, effusion, or edema noted. . On the knees he has a bump with abrasion but no e/o active infection. NEUROLOGICAL: Awake and alert. Moves all 4 extremities. Psych: cooperative IV line sites with no e.o infection Assessment & Plan Remarks Fever. Essentially FUO no intraabd infx Staph hominis bacteremia, espinoza S isolate , including CFTX would be unusual culprit org in the abscence of [id number] devices however Subacute presentation (reports night sweats and fevers x 1 mon) and no localising findings suspicious for endocarditis repeat BC negative, but on appropriate abx Moderate to sever Unsteady gait ? Subacute combined degeneration ? Syphylis related ? Generalized weakness. RPR negative Recs Consider MIHAI to r/o endocarditis unless a diagnosis for FUO is established dc cefepime start CFTX Virginia Adams MD Apr 03, 2017 20:00
[2017-04-03] MEDS ORDERED: LORazepam 2 MG/ML VIAL IV PUSH ONE (23:30)
[2017-04-03] MEDS ORDERED: CYANOCOBALAMIN 1000 MCG/ML VIAL IM ONE (23:30)
[2017-04-03] MEDS ORDERED: ALBUMIN HUMAN 25% 25 GM/100 ML BAGP IV ONE (23:30)
[2017-04-03] MEDS: POTASSIUM CHLORIDE 25 MEQ EFFERVESCENT TAB NG SCH (23:30)
[2017-04-04] MEDS: HEPARIN SODIUM - SQ 10,000 UNITS/ML VIAL SQ SCH (00:32)
[2017-04-04] MEDS: POTASSIUM CHLORIDE 25 MEQ EFFERVESCENT TAB NG SCH (00:34)
--- NOTE | 2017-04-04 17:22 | PD.AMA ---
Against Medical Advice Note AMA Statement Patient Tremaine Garcia has decided to leave the hospital against medical advice. This patient has the capacity to refuse care and understands the risks of leaving, including permanent disability and/or , and has had an opportunity to ask questions about his condition. The patient has been informed that he may return for care at any time, and follow up has been arranged/ advised. Hansa Horner Apr 04, 2017 17:22
--- NOTE | 2017-05-04 21:56 | HHI.DS ---
Discharge Summary Admission Date Mar 31, 2017 at 09:08 Discharge Date: Apr 04, 2017 Admitting Diagnosis unsteady gait, fever of unknown origin (1) Sepsis ICD Codes: A41.9 - Sepsis, unspecified organism Status: Acute (2) Aortic stenosis ICD Codes: I35.0 - Nonrheumatic aortic (valve) stenosis Status: Acute (3) Weakness ICD Codes: R53.1 - Weakness Status: Acute (4) Murmur ICD Codes: R01.1 - Cardiac murmur, unspecified Status: Chronic (5) Elevated C-reactive protein ICD Codes: R79.82 - Elevated C-reactive protein (CRP) Status: Acute (6) HTN (hypertension) ICD Codes: I10 - Essential (primary) hypertension Status: Chronic (7) Protein calorie malnutrition ICD Codes: E46 - Unspecified protein-calorie malnutrition Status: Acute (8) Thrombocytopenia ICD Codes: D69.6 - Thrombocytopenia, unspecified Status: Acute (9) Splenomegaly ICD Codes: R16.1 - Splenomegaly, not elsewhere classified Status: Acute (10) Anemia ICD Codes: D64.9 - Anemia, unspecified Status: Chronic Imaging Last Impressions Lower Extremity Ultrasound 03/31/17 Signed Impressions: Service Date/Time: Friday, March 31, 2017 18:53 - CONCLUSION: Normal examination. Wilber Riley MD Chest X-Ray 03/31/17 Signed Impressions: Service Date/Time: Friday, March 31, 2017 18:12 - CONCLUSION: 1. Small bilateral effusions. Minimal subsegmental basilar airspace disease most characteristic of atelectasis. Cannot exclude mild bronchopneumonia. Wilber Riley MD Lumbar Spine MRI 03/29/17 Signed Impressions: Service Date/Time: Wednesday, March 29, 2017 23:48 - CONCLUSION: 1. Limited examination due to patient motion. 2. No evidence for abnormal enhancement or edema to suggest discitis/osteomyelitis. 3. Degenerative spondylosis of the lumbar spine most prominently at L2-3 and L4-5, as above. Vern Booth MD Head Magnetic Resonance Angiography 03/29/17 Signed Impressions: Service Date/Time: Wednesday, March 29, 2017 23:48 - CONCLUSION: 1. Unremarkable MRA examination of the head. No evidence for large vessel occlusion or stenosis. Vern Booth MD Head CT 03/29/17 0000 Signed Impressions: Service Date/Time: Wednesday, March 29, 2017 19:58 - CONCLUSION: 1. No acute findings. Chronic white matter ischemic changes. Wilber Riley MD Brain MRI 03/29/17 0000 Signed Impressions: Service Date/Time: Wednesday, March 29, 2017 23:48 - CONCLUSION: 1. Senescent changes with moderate small vessel ischemic white matter demyelination. 2. Otherwise, unremarkable MRI examination of the brain. No evidence for acute ischemia or abnormal enhancement/mass. Vern Booth MD Abdomen/Pelvis CT 03/29/17 0000 Signed Impressions: Service Date/Time: Wednesday, March 29, 2017 20:03 - CONCLUSION: 1. No acute findings within the abdomen and pelvis. Specifically no obstructive uropathy or bowel obstruction. 2. Multiple calcified gallstones. 3. Splenomegaly. Wilber Riley MD Hospital Course This is a pleasant 82-year-old male whose a month ago. His appetite has been poor. Over the past week, though, he has really just lost all of his energy. He is staying with his daughter who has developed an upper respiratory infection. He may have developed a little bit of an upper respiratory infection as well. He has had some fever, chills. He has become shaky. He has had some decreased urine control at night. He has also had some yellowish small stools for awhile. His low back is hurting but this is not a new problem; it has been intermittent. His legs feel weak and occasionally painful, the left being weaker than the right. Over the last two days, he has also had some urinary accidents as well. His temperature has been up to 101. He went to see his family doctor today and was sent to the emergency room. He has had some lower abdominal pain as well for a few days. He has not had any chest pain, shortness of breath, nausea, vomiting. No blood in the stool. He has had no trauma to the back, no falls and no change in medication recently. Was evaluated in the ED: INVESTIGATIONS White count 6.3, hemoglobin 12.4, platelets are 131. INR is 1.2. PT is 13.9. PTT is 34.3. Sodium 138, potassium 3.7, BUN 18, creatinine 0.97, glucose 103, calcium 7.6. Direct bilirubin is 0.3, total is 0.9. LFTs otherwise normal. CPK is 10, total protein is 6.1, albumin is 2.7. IMAGING STUDIES CT of the abdomen and pelvis - no acute findings. No obstructive uropathy or bowel obstruction. Multiple calcified gallstones, splenomegaly. Chest x-ray - Lungs are clear. Head CT - No acute findings. Chronic white matter changes. Pt. was admitted, and during the course of the hospitalization, the following took place Pt. admitted, IVF given. PT ordered. Diagnostics were ordered- MRI/MRA of the head and MRI of the lumbar spine because of the lower extremity weakness. Started on baby ASA. BC ordered. Cdiff and flu ordered. Added procalcitonin, inflammatory markers. Monitored him on telemetry because of the tachycardia. DVT prophylaxis and GI prophylaxis were given. Imaging studies reviewed, no acute findings noted. On day 2 of admission, pt dropped BP, was febrile, sepsis work up initiated. BC ordered. Was given IVF bolus. Abx were broaden. BC were GPC +. ID consulted. No acute findings to spine MRI. PT. assisted with mobility. BP meds held Was noted with Splenomegaly and thrombocytopenia. Monitored CBC. Indices remained fair. Was noted with Murmur, indicated he has history. Did not recall last echocardiogram. 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 Mild orthostasis was his only symptom. Cardiology recommended f/u as OP. Did not recommend any cardiac intervention until sepsis resolved. Pt. was agreeable. Decreased IV fluids, monitored for symptoms of fluid overload Electrolytes were replaced, he was found hypokalemic. Pt. remained weak, PT worked with him and he was assisted out of bed was noted wheezing, CXR done. Possible bronchial pneumonia Duonebs ordered. Continued on abx. Possible UTI, culture shows probable contaminent, patient was voiding without any dysuria, monitored I&O Did require Lasix, as he did develop inc. HR and poss fluid overload. ID evaluated. Fever. Essentially FUO no intraabd infx Staph hominis bacteremia, espinoza S isolate , including CFTX would be unusual culprit org in the absence of prosthetic devices however Subacute presentation (reports night sweats and fevers x 1 month) and no localizing findings suspicious for endocarditis repeat BC negative, but on appropriate abx Moderate to sever Unsteady gait ? Subacute combined degeneration ? Syphylis related ? Generalized weakness. RPR negative Recommended to Consider MIHAI to r/o endocarditis unless a diagnosis for FUO is established dcd cefepime and started on CFTX Pt. remained tachy, at times anxious. Fevers had started to improve. Work up was continued. Pt's daughter became irate and wanted to sign pt. out AMA. Pt. left AMA in fair condition. Pt Condition on Discharge: Fair Discharge Disposition: Disc to Psych Care Fac Discharge Instructions DIET: Follow Instructions for: Weight Management, Celiac Disease Diet Nataly Andrew [facility] May 04, 2017 21:56
== END 2017-04-04 02:36 | disposition left against medical advice (07) | DRG 871 ==
LOC: NEPE 16:56 → NEDA 21:35 → NEPGCP 23:29 → OBSVTOIN 03-31 09:08
PROVIDERS: ADMIT Specialist; ATTEND Specialist
DX: A41.9 Sepsis, unspecified organism (principal); J18.0 Bronchopneumonia, unspecified organism; E44.0 Moderate protein-calorie malnutrition; D69.6 Thrombocytopenia, unspecified; E86.0 Dehydration; R16.1 Splenomegaly, not elsewhere classified; R26.89 Other abnormalities of gait and mobility; I10 Essential (primary) hypertension; N40.0 Benign prostatic hyperplasia without lower urinary tract symptoms; E78.5 Hyperlipidemia, unspecified; E87.6 Hypokalemia; F41.9 Anxiety disorder, unspecified; I35.0 Nonrheumatic aortic (valve) stenosis; K59.00 Constipation, unspecified; K80.20 Calculus of gallbladder without cholecystitis without obstruction; D63.8 Anemia in other chronic diseases classified elsewhere; M54.5 Low back pain; G89.29 Other chronic pain; R00.0 Tachycardia, unspecified; Z23 Encounter for immunization; B95.7 Other staphylococcus as the cause of diseases classified elsewhere
CPT/HCPCS: 70450; 70544; 70553; 71010; 71020; 72158; 74177; 80048; 80076; 81001; 82550; 82607; 82948; 83605; 83735; 84145; 84155; 85025; 85027; 85610; 85652; 85730; 86140; 86308; 86403; 86592; 87040; 87077; 87086; 87186; 87205; 87804; 90471; 90732; 93306; 93970; 94640; 94664; 96361; 96372; 96374; A9579; G0009; G0378; G8987-GP; G8988-GP; J0692; J0696; J1630; J1644; J1940; J2060; J2405; J2543; J3370; J3420; J3480; J7030; J7050; P9047; Q9967